=== PATIENT | male | born 1960 | race Caucasian/White ===

== ENCOUNTER → 2016-05-06 | Outpatient (CLI) | payer BC | END | disposition home or self-care (01) | LOC: C.CPL 10:27 | PROVIDERS: ATTEND Orthopaedic Surgery Sports Medicine | DX: Z01.810 Encounter for preprocedural cardiovascular examination (principal) ==

== ENCOUNTER → 2016-05-20 | Outpatient (CLI) | payer BC ==
--- NOTE | 2016-05-20 11:57 | DIAGNOSTIC IMAGING REPORT ---
RIGHT FIFTH FINGER ULTRASOUND CLINICAL HISTORY: Right fifth finger mass COMPARISON STUDY: No previous studies for comparison. FINDINGS: There is a 2.3 cm mixed attenuation mass involving the volar aspect of the right fifth finger. This is contiguous with the flexor tendon which appears abnormal. This may represent a posttraumatic hematoma in the setting of a flexor tendon injury. The ultrasound findings are however nonspecific, and a tendon sheath tumor cannot be excluded with certainty. An MRI is recommended in follow-up. IMPRESSION: 1. 2.3 cm mass contiguous with the flexor tendon of the right fifth finger. The flexor tendon appears abnormal and this may represent a posttraumatic hematoma in the setting of a flexor tendon injury. The findings are however nonspecific and an MRI is recommended in follow-up Electronically signed by: Dewey Slater M.D. 05/20/2016 11:56 AM Dictated Date/Time: 05/20/2016 11:51 AM
== END | disposition home or self-care (01) ==
LOC: C.ULTR 10:28
PROVIDERS: ATTEND Orthopaedic Surgery
DX: R22.31 Localized swelling, mass and lump, right upper limb (principal)

== ENCOUNTER → 2016-06-06 | Outpatient (CLI) | payer BC | END | disposition home or self-care (01) | LOC: C.PATHSPEC 17:17 | PROVIDERS: ATTEND Orthopaedic Surgery | DX: M1A.9XX1 Chronic gout, unspecified, with tophus (tophi) (principal) ==

== ENCOUNTER 2022-07-28 06:40 | Observation (INO) ==
--- NOTE | 2022-07-14 11:38 | PAT Medication Instructions ---
Medication Instructions Date of Service July 14, 2022 Home Medications indomethacin 25 mg capsule 25 mg PO QID PRN Pain lisinopril 20 mg tablet 20 mg PO QAM ASK your surgeon for instructions indomethacin 25 mg capsule 25 mg PO QID PRN Pain DO NOT take the morning of surgery lisinopril 20 mg tablet 20 mg PO QAM Other Notes If you have any questions please call us at [phone] or [phone] or [phone] or [phone]
--- NOTE | 2022-07-17 15:02 | Anesthesiology Consultation ---
Date of Service July 17, 2022 Assessment & Plan (1) Encounter for pre-operative examination: - awaiting final PCP pre-op determination, PAT testing to be faxed to PCP. - medical clearance 06/23/22 [facility]: "...right shoulder replacement...chronic conditions are stable...OK for surgery as long as the pre-op testing is within acceptable limits..." - Case discussed in detail with Dr. Lynch including abnormal labs, he advised nothing additional needed other than plan to fax labs to PCP and await PCP response. If PCP repeats BMP will add to chart and if not, will leave to anesthesiologist discretion DOS per discussion. - Outpatient joint assessment: Pending PCP determination. Chart Review Chart Review: Pending: Refer to Additional Notes / Consult section and Patient seen in Pre Admission Testing Teaching & Discussion Pre-Anesthesia Teaching/Discussion Notes: Instructed NPO after midnight before surgery, except medications with 15 cc of water. Medication instructions provided according to the PAT guidelines. History Surgery Operation Date: 07/28/22 12:15 Proposed Procedures p Right Total Shoulder Arthroplasty, Biceps Tenodesis, - Garrett Moreira MD s Biceps Tenodesis, Possible Rotator Cuff Repair - Garrett Moreira MD Height/Weight Height: 5 ft 11 in Weight: 86.4 kg Allergies Allergy/AdvReac Type Severity Reaction Status Date / Time crestor AdvReac Intermediate myalgia Uncoded 07/15/22 10:35 and nausea percocet AdvReac Intermediate nausea and Uncoded 07/15/22 10:35 headache Medications Home Medications Medication Instructions Recorded Confirmed Last Taken indomethacin 25 mg capsule 25 mg PO QID PRN Pain 07/11/22 07/11/22 Unknown lisinopril 20 mg tablet 20 mg PO QAM 07/11/22 07/11/22 Unknown Past Medical History Medical History (Updated 07/17/22 @ 15:12 by Cori Thapa PA-C) Asthma only prn inhaler; last rescue inhaler use > 3 months ago Gout HTN (hypertension) controlled, stable per pt Prediabetes Rosacea Patient denies h/o stroke, seizures, heart attack, heart failure, blood clots or blood transfusions. Exercise / Class Metabolic Activity II 4-5 Yardwork/Stairs/Walk up hill (denies chest discomfort or shortness of breath with 1 FOS) Past Family History Family History Other No family history of adverse response to anesthesia Past Surgical History Surgical History History of open reduction and internal fixation (ORIF) procedure left clavicle fx Hx of arthroscopic knee surgery left Hx of colonoscopy Past Anesthesia History No Hx of Anesthesia Complications and No Family Hx of Anesthesia Complications History of PONV No Hx of PONV and No Hx of Motion Sickness Social History Smoking Status: Former smoker tobacco type: cigarettes Smoking cigarettes per day: quit over 17 yrs ago Do You Dip or Chew Tobacco: No Hx Alcohol Use: Yes Alcohol type: beer alcohol intake frequency: a few times a month Hx Substance Use: No substance use type: does not use Review of Systems Occasional snoring, denies witnessed apneas. Patient denies chest pain, shortness of breath, dyspnea on exertion, reflux, fever, chills, cough, wheezing, or palpitations. Physical Exam Vital Signs Vitals BP 166/74 P 64 TEMP 97.9 SP02 99% on RA RESP 18 Physical Full cervical extension range of motion without pain TMD 3.5 finger breadths Mallampati Score 3 Dentition: front upper permanent bridge; denies chipped or loose teeth, caps/crowns, implants Lungs: normal respiratory effort. Clear throughout to auscultation, no adventitious breath sounds Cardiac: regular rate and rhythm, no murmurs noted Carotid arteries: negative bruit bilat Lab Results Anesthesia Preop Results Results Anesthesia Widget: WBC 5.88 K/ul (4.8-10.8) 07/17/22 Hgb 11.4 g/dl (14.0-18.0) L 07/17/22 Hct 34.5 % (42.0-52.0) L 07/17/22 Plt 231 K/uL (130-400) 07/17/22 Na 141 mmol/L (136-145) 07/17/22 K 5.4 mmol/L (3.5-5.1) H 07/17/22 Cl 111 mmol/L (98-107) H 07/17/22 CO2 23 mmol/L (21-32) 07/17/22 BUN 38 mg/dl (6-23) H 07/17/22 Creat 1.23 mg/dl (0.6-1.4) 07/17/22 Glucose Level 98 mg/dl (70-99(Fasting)) 07/17/22 PT 10.3 Seconds (9.0-12.0) 07/17/22 PTT 26.0 Seconds (21.0-31.0) 07/17/22 INR 1.0 (0.9-1.1) 07/17/22 Urine Color Yellow 07/17/22 Urine Appearance Clear (Clear) 07/17/22 Urine pH 5.0 (4.5-7.5) 07/17/22 Urine Specific [place] 1.019 (1.000-1.030) 07/17/22 Urine Protein 2+ (Negative) H 07/17/22 Urine Glucose (UA) Negative (Negative) 07/17/22 Urine Ketones Negative (Negative) 07/17/22 Urine Blood Negative (Negative) 07/17/22 Urine Nitrite Negative (Negative) 07/17/22 Urine Bilirubin Negative (Negative) 07/17/22 Urine Urobilinogen Negative (Negative) 07/17/22 Urine Leukocyte Esterase Negative (Negative) 07/17/22 Urine WBC (Auto) 1-5 /hpf (0-5) 07/17/22 Urine RBC (Auto) 0-4 /hpf (0-4) 07/17/22 Urine Hyaline Casts (Auto) 1-5 /lpf (0-5) 07/17/22 Urine Epithelial Cells (Auto) 0-5 /lpf (0-5) 07/17/22 Urine Bacteria (Auto) Negative (Negative) 07/17/22 Blood Type A Positive 07/17/22 Antibody Screen NEGATIVE 07/17/22 Testing Electrocardiogram Date: 07/17/22 NSR, rate 62 bpm Chest X-Ray Date: 07/17/22 Left clavicular fixation hardware is seen. The cardiomediastinal silhouette is normal. The lungs are clear. No evidence of pleural effusion or pneumothorax. Degenerative changes are seen in the spine. IMPRESSION: No acute chest disease. COVID-19 Risk Screen Screening Information COVID-19 Screen Date: 07/17/22 Exposure 21 Days Family/Household +COVID Last 21 Days: No Exposure 10 Days Any COVID Exposure Last 10 Days: No Symptoms Last 10 Days Experienced COVID Sx Last 10 Days: No + COVID 0-90 Days COVID + in Last 0-90 Days: No
--- NOTE | 2022-07-27 18:35 | History & Physical Report ---
Date of Service July 27, 2022 Assessment & Plan (1) Primary osteoarthritis, right shoulder: Plan: Treatment options discussed with patient. He has failed conservative measures and would like to proceed with surgical intervention. Risks, benefits and alternatives to surgery including but not limited to infection, DVT, pain, stiffness, need for revision surgery, damage to blood vessels, damage to nerves, PE, , were discussed with the patient and they wish to proceed. Plan on right total shoulder arthroplasty, biceps tenodesis, possible rotator cuff repair scheduled for 07/28/22 at [facility] with Dr. Eugene. All questions answered. He will attend outpatient PT upon discharge. Patient will follow up post op. History of Present Illness Chief Complaint: Right shoulder pain Primary Care Provider: NO PCP 62yo male with PMHx significant for HTN, Gout, asthma who presents with longstanding right shoulder pain. He has failed conservaitve measures including injections. Pain interfering with his daily acttivities. He would like to proceed with surgical intervention. Patient denies headaches, sweats, fevers, chills, double vision, blurred vision, cough, sore throat, dysphagia, chest pain, sob, wheezing, n/v/d/c, numbness, tingling, fatigue, urinary symptoms, mood disorders. ROS positive for right shoulder pain and stiffness. Allergies Allergy/AdvReac Type Severity Reaction Status Date / Time acetaminophen [From Percocet] AdvReac NAUSEA AND Verified 07/25/22 13:48 HEADACHE oxycodone [From Percocet] AdvReac NAUSEA AND Verified 07/25/22 13:48 HEADACHE rosuvastatin [From Crestor] AdvReac MYALGIA Verified 07/25/22 13:48 AND NAUSEA Home Medications Medication Instructions Recorded Confirmed Type indomethacin 25 mg capsule 25 mg PO QID PRN Pain 07/11/22 07/11/22 History lisinopril 20 mg tablet 20 mg PO QAM 07/11/22 07/11/22 History Past Med/Surg History Medical History (Updated 07/27/22 @ 18:34 by Oscar León PA-C) Asthma only prn inhaler; last rescue inhaler use > 3 months ago Gout HTN (hypertension) controlled, stable per pt Prediabetes Rosacea Surgical History History of open reduction and internal fixation (ORIF) procedure left clavicle fx Hx of arthroscopic knee surgery left Hx of colonoscopy Family History Other No family history of adverse response to anesthesia Social History Smoking Status: Former smoker Cigarettes Per Day: quit over 17 yrs ago; Second Hand Exposure: No; Do You Dip or Chew Tobacco: No; Tobacco Cessation Education Requested by Patient: No Hx Alcohol Use: Yes Alcohol type: beer Hx Substance Use: No Preferred Language: Samoan Communication Ability: Effective Congressional Representative Required: No Beliefs That Will Affect Care: None Current Living Situation: Spouse Other Information That Helps Us Care for You: No Feels Safe at Home: Yes Safety Concerns: Feels Safe At This Time Assistive Devices: None Review of Systems All systems reviewed & are unremarkable except as noted in HPI & below Physical Exam Constitutional: well developed and well nourished; no acute distress Eyes: PERRL, conjunctivae normal, anicteric sclerae ENMT: external ear and nose normal, oropharynx normal Neck: trachea midline, no thyromegaly Respiratory: normal respiratory effort, lungs clear to auscultation Cardiovascular: RRR, no murmur, no edema Musculoskeletal: Right shoulder: Tenderness anterior glenoid. Crepitation with ROM. Pain with resistive strength testing. 5-/5 abduction, 5-/5 ER and IR. Painful ROM. FF to 60 degreees and abduction to 60 degrees actively. Positive impingement signs. Skin: no rashes, warm and dry Neurologic: patellar DTR's 2+ bilat, sensation intact Psychiatric: A+Ox3, euthymic affect Results & Data Diagnostic Findings Right shoulder radiographs demonstrate endstage osteoarthritis right shoulder, bone on bone glenohumeral joint. MRI demonstrates some parital tearing of his rotator cuff, not felt to be high grade with rotator cuff tendinopathy.
[~2022-07-28 06:40] MED LIST: ACETAMINOPHEN 500 MG TAB PO SCH; BUPIVACAINE 0.5 % 5 MG/1 ML PF 10ML VIAL ONE; CeleBREX 200 MG CAP PO SCH; FAMOTIDINE 20 MG TAB PO SCH; GABAPENTIN 600 MG DOSE PO SCH; METOCLOPRAMIDE HCL 10 MG TABLET PO SCH; TRANEXAMIC ACID 1,000 MG **IV Intra-op IV SCH; TRANEXAMIC ACID 1,000 MG **IV Pre-op IV SCH; ceFAZolin 2000MG 2,000 MG/15 ML SYR IV SCH; dexAMETHasone 4 MG TAB PO SCH
[2022-07-28] MEDS ORDERED: MIDAZOLAM HCL 1 MG/ML 2ML VIAL ONE (06:52)
[2022-07-28] MEDS ORDERED: KETAMINE 50 MG/5 ML SYRINGE ONE (06:53)
[2022-07-28] MEDS ORDERED: fentaNYL citrate PF 100 MCG/2 ML VIAL ONE (06:53)
--- NOTE | 2022-07-28 07:30 | History & Physical Bridge Note ---
Date of Service July 28, 2022 History & Physical Bridge Note I have examined the patient, reviewed the History & Physical and in the interval since the performance of the History & Physical I have noted the following changes of clinical significance: no changes noted
[2022-07-28] MEDS: LACTATED RINGER'S 1,000 ML IV SCH ×2 (08:00→11:28)
[2022-07-28 08:59] LABS: iSTAT Creatinine 1.9 mg/dl (0.6-1.3); iSTAT Hemoglobin 12.2 g/dl (14.0-18.0); iSTAT Ionized Calcium 1.32 mmol/l (1.12-1.32); iSTAT Potassium 5.9 mmol/L (3.3-5.0)
--- NOTE | 2022-07-28 09:30 | History & Physical Report ---
Date of Service July 28, 2022 Assessment & Plan (1) Hyperkalemia: Plan: -POC potassium is 5.9 -Full BMP is still pending -EKG with no changes -will give 1 dose lokelma now -repeat BMP later this afternoon -lisinopril discontinued (2) GLORIA (acute kidney injury): Plan: -POC Cr is 1.9, full BMP is pending -Cr from last week is 1.2, patient's baseline Cr is 1.2-1.5 -will check renal/bladder ultrasound to rule out obstruction -lisinopril and indomethacin discontinued (3) Arthritis: Plan: -acetaminophen PRN for pain (4) HTN (hypertension): Plan: -hold lisinopril -BP is normotensive. Monitor for now Plan Nausea -may be NSAIDs induced gastritis. Denies abdominal pain, PUD less likely -start course of pepcid BID -zofran PRN -avoid NSAIDs DVT ppx -Ambulation, SCD Dispo -PCU History of Present Illness Chief Complaint: abnormal pre op labs Primary Care Provider: NO PCP Mr Cory Perez is a 62 year old man with history of diverticulosis, hyperlipidemia, clavicle fracture, gout, hypertension on lisinopril, arthritis on indomethacin presents to [facility] for routine right shoulder replacement and for preop had labwork which revealed a potassium of 5.9. His surgery was cancelled and medicine was consulted for help with management of his hyperkalemia. Of note, he did have preop labwork 07/17/2022 and at that time, his potassium was noted to be 5.3. He was instructed to increase water intake. He remains on lisinopril. His remaining labwork from today shows a Cr 1.9 (1.2 on 07/17) and remaining labwork is pending. Review of systems, patients reports body stiffness and arthritis for which he takes indomethacin. Recently he also intermittently has nausea but no vomiting, no abdominal pain. His oral intake and diet is unchanged. Denies dysuria or difficulty urinating. Denies dark urine. No recent medication changes. Allergies Allergy/AdvReac Type Severity Reaction Status Date / Time acetaminophen [From Percocet] AdvReac NAUSEA AND Verified 07/28/22 07:26 HEADACHE oxycodone [From Percocet] AdvReac NAUSEA AND Verified 07/28/22 07:26 HEADACHE rosuvastatin [From Crestor] AdvReac MYALGIA Verified 07/28/22 07:26 AND NAUSEA Home Medications Medication Instructions Recorded Confirmed Type indomethacin 25 mg capsule 25 mg PO QID PRN Pain 07/11/22 07/28/22 History lisinopril 20 mg tablet 20 mg PO QAM 07/11/22 07/28/22 History Past Med/Surg History Medical History (Updated 07/28/22 @ 10:14 by Yong Cintron MD) Asthma only prn inhaler; last rescue inhaler use > 3 months ago Gout HTN (hypertension) controlled, stable per pt Prediabetes Rosacea Surgical History History of open reduction and internal fixation (ORIF) procedure left clavicle fx Hx of arthroscopic knee surgery left Hx of colonoscopy Family History Other No family history of adverse response to anesthesia Social History Smoking Status: Former smoker Cigarettes Per Day: quit over 17 yrs ago; Second Hand Exposure: No; Do You Dip or Chew Tobacco: No; Tobacco Cessation Education Requested by Patient: No Hx Alcohol Use: Yes Alcohol type: beer Hx Substance Use: No Preferred Language: Mohawk Communication Ability: Effective Guest House Manager Required: No Beliefs That Will Affect Care: None Current Living Situation: Spouse Other Information That Helps Us Care for You: No Feels Safe at Home: Yes Safety Concerns: Feels Safe At This Time Assistive Devices: None Review of Systems Review of Systems: As above in HPI, remaining ROS otherwise negative Physical Exam Physical Exam: Appears stated age, no acute distress, pleasant and comfortable ENMT: normocephalic, atraumatic, mucous membrane moist Respiratory: Breathing comfortably, no wheezing/rhonchi/rales Cardiovascular: regular rate and rhythm, no murmurs/rubs Gastrointestinal (Abdomen): soft, non tender, non distended Musculoskeletal: No edema, no cyanosis or clubbing Skin: no rash, no redness, no bruising Neurologic: awake, alert, spontaneously moving extremities Results & Data Results & Data Vital Signs (Past 12 Hours) Vital Signs Temp Pulse Resp BP Pulse Ox O2 Del Method 07/28/22 07:29 36.6 C 68 18 131/80 98 Room Air
[2022-07-28 09:45] LABS: Calcium 9.6 mg/dl (8.6-10.3); Potassium 5.3 mmol/L (3.5-5.1)
[2022-07-28 09:51] LABS: BUN Creatinine Ratio 27.5 (10-20); Creatinine Clr Calc Pharmacy 49.5 ml/min; Est GFR (African American) 50.4 ml/min; Est GFR (Non-African American) 43.5 ml/min
[2022-07-28] MEDS ORDERED: ondansetron HCL 6 MG in DEXTROSE 5% 50 ML IV PRN (11:01)
[2022-07-28] MEDS ORDERED: POLYETHYLENE (MIRALAX) 17 GM PACK PO PRN (11:01)
[2022-07-28] MEDS ORDERED: ACETAMINOPHEN 325 MG TAB PO PRN (11:01)
[2022-07-28] MEDS: SODIUM CHLORIDE 0.9% 1000ML 1,000 ML IV SCH ×2 (11:50→21:31)
--- NOTE | 2022-07-28 15:17 | Ultrasound Report ---
RENAL ULTRASOUND HISTORY: Acute kidney injury GLORIA COMPARISON: None. FINDINGS: Right kidney: 14.3 cm. Cysts of the right kidney measure up to 7.0 x 4.6 x 4.2 cm in the interpolar d istribution. Additionally, there is a 1.5 cm round focus of increased echogenicity within the interpo lar distribution measuring 1.5 x 1.3 x 2.0 cm without color flow. No hydronephrosis. Normal corticome dullary differentiation and cortical thickness. Left kidney: 11.6 cm. No hydronephrosis. Normal corticomedullary differentiation and cortical thickne ss. Bladder: Mild urinary bladder wall thickening. The bilateral ureteral jets were identified. IMPRESSION: 1. No renal calculi or hydronephrosis. 2. 2.0 cm round focus of increased echogenicity within the interpolar right kidney may represent norm al parenchyma, however correlation with a CT renal mass protocol recommended to further characterize. 3. Right renal cysts. ACT 112: Negative or not required by law. Electronically signed by: Taj Styles M.D. 07/28/2022 3:16 PM
[2022-07-28 17:07] LABS: BUN Creatinine Ratio 27.8 (10-20); Calcium 9.3 mg/dl (8.6-10.3); Creatinine Clr Calc Pharmacy 48.9 ml/min; Est GFR (African American) 49.7 ml/min; Est GFR (Non-African American) 42.9 ml/min; Potassium 5.9 mmol/L (3.5-5.1)
[2022-07-28] MEDS ORDERED: SODIUM ZIRCONIUM CYCLOSILICATE 10 GM PACKET PO ONE (17:15)
--- NOTE | 2022-07-28 17:45 | Electrocardiogram Report ---
Test Reason : Blood Pressure : / mmHG Vent. Rate : 068 BPM Atrial Rate : 068 BPM P-R Int : 136 ms QRS Dur : 084 ms QT Int : 380 ms P-R-T Axes : 059 050 057 degrees QTc Int : 404 ms Normal sinus rhythm Normal ECG When compared with ECG of 17-JUL-2022 15:27, No significant change was found Confirmed by Harshal Grace ([id number]) on 07/28/2022 5:44:23 PM Referred By: Garrett Moreira Confirmed By:Saulo Grace
--- NOTE | 2022-07-28 17:46 | Electrocardiogram Report ---
Test Reason : Blood Pressure : / mmHG Vent. Rate : 065 BPM Atrial Rate : 065 BPM P-R Int : 142 ms QRS Dur : 082 ms QT Int : 384 ms P-R-T Axes : 068 053 056 degrees QTc Int : 399 ms Normal sinus rhythm Normal ECG When compared with ECG of 28-JUL-2022 07:41, (unconfirmed) No significant change was found Confirmed by Harshal Grace ([id number]) on 07/28/2022 5:45:58 PM Referred By: Garrett Moreira Confirmed By:Saulo Grace
[2022-07-28] MEDS: FAMOTIDINE 20 MG TAB PO SCH (21:12)
[2022-07-28 22:27] LABS: BUN Creatinine Ratio 30.1 (10-20); Calcium 9.1 mg/dl (8.6-10.3); Est GFR (African American) 56.1 ml/min; Est GFR (Non-African American) 48.4 ml/min; Potassium 5.2 mmol/L (3.5-5.1)
[2022-07-29 07:07] LABS: BUN Creatinine Ratio 32.3 (10-20); Calcium 8.8 mg/dl (8.6-10.3); Creatinine Clr Calc Pharmacy 66.6 ml/min; Est GFR (African American) 72.3 ml/min; Est GFR (Non-African American) 62.4 ml/min; Potassium 4.8 mmol/L (3.5-5.1)
[2022-07-29] MEDS: SODIUM CHLORIDE 0.9% 1000ML 1,000 ML IV SCH (08:27)
[2022-07-29] MEDS: FAMOTIDINE 20 MG TAB PO SCH (08:28)
--- NOTE | 2022-07-29 15:29 | Communication Note ---
Date of Service: July 29, 2022 Patient was scheduled yesterday for total shoulder arthroplasty with Dr. Moreira. He was found to be hyperkalemic and the surgery was thusly canceled. He was admitted to the hospitalist service thereafter. Potassium was brought down to 4.8 noted today. I discussed this with Dr. Moreira today. There are no plans for surgery during this admission. Patient can be discharged by the medicine service to home. He will need to call the office to reschedule his surgery. He will also need to follow-up with his primary care physician with repeat blood work prior to his next surgery date to make sure that his potassium continues to remain stable. I have spoken to Dr. Dubon. Plans will be to discharge the patient home today with follow-up with Dr. Moreira in the near future.
--- NOTE | 2022-07-29 15:49 | Discharge Summary ---
Date of Service July 29, 2022 Admission HPI Per Admitting Provider Mr Cory Perez is a 62 year old man with history of diverticulosis, hyperlipidemia, clavicle fracture, gout, hypertension on lisinopril, arthritis on indomethacin presents to [facility] for routine right shoulder replacement and for preop had labwork which revealed a potassium of 5.9. His surgery was cancelled and medicine was consulted for help with management of his hyperkalemia. Of note, he did have preop labwork 07/17/2022 and at that time, his potassium was noted to be 5.3. He was instructed to increase water intake. He remains on lisinopril. His remaining labwork from today shows a Cr 1.9 (1.2 on 07/17) and remaining labwork is pending. Review of systems, patients reports body stiffness and arthritis for which he takes indomethacin. Recently he also intermittently has nausea but no vomiting, no abdominal pain. His oral intake and diet is unchanged. Denies dysuria or difficulty urinating. Denies dark urine. No recent medication changes. Admission Exam Per Admitting Provider Appears stated age, no acute distress, pleasant and comfortable ENMT: normocephalic, atraumatic, mucous membrane moist Respiratory: Breathing comfortably, no wheezing/rhonchi/rales Cardiovascular: regular rate and rhythm, no murmurs/rubs Gastrointestinal (Abdomen): soft, non tender, non distended Musculoskeletal: No edema, no cyanosis or clubbing Skin: no rash, no redness, no bruising Neurologic: awake, alert, spontaneously moving extremities Principal Diagnosis GLORIA Hyperkalemia Discharge Exam Constitutional + well hydrated; no acute distress Eyes PERRL, conjunctivae normal, anicteric sclerae ENMT external ear and nose normal, oropharynx normal Respiratory normal respiratory effort, lungs clear to auscultation Cardiovascular Rate/Rhythm: regular rate and regular rhythm S1 S2 Gastrointestinal (Abdomen) normal bowel sounds, soft, nontender, no hepatosplenomegaly Musculoskeletal No pedal edema Neurologic PERRL, EOMI, accommodation nl, no face palsy, no dysarthria Psychiatric A+Ox3, euthymic affect Discharge Data Allergies Allergy/AdvReac Type Severity Reaction Status Date / Time acetaminophen [From Percocet] AdvReac NAUSEA AND Verified 07/28/22 07:26 HEADACHE oxycodone [From Percocet] AdvReac NAUSEA AND Verified 07/28/22 07:26 HEADACHE rosuvastatin [From Crestor] AdvReac MYALGIA Verified 07/28/22 07:26 AND NAUSEA Consultations 07/25/22 12:45 Consult Hospitalist Routine 07/28/22 08:52 Consult Hospitalist Stat 07/29/22 12:59 Consult Orthopedic Surgery Routine Procedures Performed Operation Date: 07/28/22 09:35 <No data on this case meets the specified criteria> Ordered Studies 07/28/22 10:15 US Renal Bladder [US renal/blad retro comp] Routine Hospital Course (1) Hyperkalemia: (2) GLORIA (acute kidney injury): Patient had scheduled right shoulder arthroplasty But POC lab and BMP noted hyperkalemia up to 5.9 and Cr of 1.69 Patient got 1 dose of lokelma and IVF Renal USS did not show any renal calculi or hydronephrosis. Also noted 2cm round focus within right kidney which may be normal parenchyma GLORIA resolved. Cr is 1.2 today, K is 4.8 Patient advised to follow up with PCP within the week for follow up Lisinopril stopped for now. Amlodipine 5mg daily prescribed in place of lisinopril Patient advised to stop using Indomethacin/NSAIDs but to use tylenol for pain PCP to arrange for CT renal protocol for better assessment of USS findings (3) Arthritis: Acetaminophen PRN for pain Stop indomethacin Discussed with surgical team. They will like patient to follow up with PCP before rescheduling surg. PCP to repeat labs (4) HTN (hypertension): Lisinopril stopped for now. Amlodipine 5mg daily prescribed in place of lisinopril Plan Sent a tigertext to PCP (Artemio Herr) about findings, plans and recommendations Total Time Total Time Spent Total Time Spent (In Minutes): 45 Total Time Includes: Examination of the Patient, Discharge Planning, Medication Reconciliation and Communication With Other Providers Discharge Plan Discharge Items Patient Disposition: Home - Self-Care Reason For Visit: Right Shoulder Osteoarthritis, Partial Rotator cuf Discharge Diagnosis: Acute kidney injury Hyperkalemia Condition on Discharge: Good Activity: Resume your previous activity Weightbearing: Full weightbearing Non-emergency contact: Primary Care Provider and Surgeon Call non-emergency contact if: you have any medication questions and your symptoms worsen Follow-up/Referrals: PCP,NO [Primary Care Provider] - Diet: Heart Healthy and Low Potassium (2gm) Addtl Attending Provider Instructions: Mr Chris Mojica had come to the hospital for planned shoulder surgery. However, this was canceled due to abnormal labs (elevated potassium level) You were managed for these. Please stop taking ibuprofen. Use tylenol as needed for pain Stop taking lisinopril for now. You are being discharged on amlodipine 5mg daily for blood pressure management in place of lisinopril Please ensure follow up with your Primary Doctor who will evaluate you and check labs again before rescheduling the surgery with the surgeon. It was a pleasure taking care of you. Pending Studies at Discharge: No Stand-Alone Forms: My [facility], Smoking Cessation Medications and DC Order Prescriptions: New acetaminophen 325 mg Tablet 650 mg PO QID PRN (Reason: pain) Qty: 30 0RF amlodipine 5 mg tablet 5 mg PO DAILY Qty: 30 0RF Discontinued lisinopril 20 mg Tablet 20 mg PO QAM indomethacin [Indocin] 25 mg Capsule 25 mg PO QID PRN (Reason: Pain) Rx Instructions: administer with food or milk Discharge Orders: Discharge Order (Routine); Ordered 07/29/22 Ordered By: Helena Dubon Admission Data Admit Date/Time: 07/28/22 10:04 Attending Provider: Helena Dubon I. Admit Provider: Yong Cintron Primary Care Provider: PCP,NO Other Providers: Romero Hernandez ; Jeffrey Thomason ; Yong Cintron ; Garrett Moreira Other Interventions: Discharge Summary Assessment (RN) Last Done: 07/29/22 15:59
== END 2022-07-29 17:13 | disposition home or self-care (01) ==
LOC: ASU 06:40 → 2S 10:04 → INTOOBSV 10:04 → SUATTDRO 10:04
DX: M19.011 Primary osteoarthritis, right shoulder; N17.9 Acute kidney failure, unspecified; Z79.899 Other long term (current) drug therapy; I10 Essential (primary) hypertension; Z87.891 Personal history of nicotine dependence; E87.5 Hyperkalemia; Z88.5 Allergy status to narcotic agent; Z88.6 Allergy status to analgesic agent; Z88.8 Allergy status to other drugs, medicaments and biological substances

== ENCOUNTER 2022-09-03 11:48 | Observation (INO) ==
--- NOTE | 2022-08-25 10:04 | Anesthesiology Consultation ---
Date of Service August 25, 2022 Assessment & Plan (1) Encounter for pre-operative examination: Plan - to anesthesiologist discretion if additional testing is needed DOS. - PCP pre-op evaluation 08/06/22 [facility]: "...R shoulder replacement...Pt has revised cardiac index score of No Risk Factors- 0.4% (95% CI: 0.1-0.8) for the surgery scheduled. Patient is low risk for the listed procedure...potassium now within normal limits..." - discharge summary 07/29/22 [facility]: "...hyperkalemia...GLORIA (acute kidney injury)...scheduled right shoulder arthroplasty...Renal USS did not show any renal calculi or hydronephrosis. Also noted 2cm round focus within right kidney which may be normal parenchyma. GLORIA resolved. Cr is 1.2 today, K is 4.8..." - Outpatient joint assessment: Patient is currently scheduled for inpatient pathway. If re-evaluated pending system levels during current pandemic/surgeon requests outpatient pathway, patient is acceptable candidate for outpatient joint program from anesthesia standpoint pending surgeon's office assessment of pt motivation/support/completion of same day joint program preop requirements. - COVID screening: Per sled maker on 08/25/2022: Travel screen negative, no known COVID-19 positive contacts or current COVID-19 related symptoms in past 2 weeks. To surgeon's discretion if preop COVID testing is needed. Chart Review Chart Review: Acceptable Risk for Surgery and Patient NOT seen in Pre Admission Testing History Surgery Operation Date: 09/03/22 14:15 Proposed Procedures p Right Total Shoulder Arthroplasty Ascend Flex Back Up Tenodesis Possible Rotator Cuff Repair - Garrett Moreira MD Height/Weight Height: 5 ft 11 in Weight: 88.451 kg Allergies Allergy/AdvReac Type Severity Reaction Status Date / Time acetaminophen [From Percocet] AdvReac NAUSEA AND Verified 08/25/22 08:29 HEADACHE oxycodone [From Percocet] AdvReac NAUSEA AND Verified 08/25/22 08:29 HEADACHE rosuvastatin [From Crestor] AdvReac MYALGIA Verified 08/25/22 08:29 AND NAUSEA Medications Home Medications Medication Instructions Recorded Confirmed Last Taken acetaminophen 325 mg tablet 650 mg PO QID PRN pain #30 tabs 07/29/22 08/25/22 Unknown amlodipine 5 mg tablet 5 mg PO DAILY #30 tabs 07/29/22 08/25/22 Unknown Past Medical History Medical History (Updated 08/25/22 @ 09:57 by Cori Thapa PA-C) Asthma has not used inhaler > 7 mos Gout hx HTN (hypertension) controlled, stable per pt Hyperlipidemia controlled w/ diet Prediabetes no meds- diet controlled Rosacea has not had issue in years Past Family History Family History Other No family history of adverse response to anesthesia Past Surgical History Surgical History History of open reduction and internal fixation (ORIF) procedure left clavicle fx Hx of arthroscopic knee surgery left Hx of colonoscopy Hx of tooth extraction Social History Smoking Status: Former smoker tobacco type: cigarettes Smoking cigarettes per day: quit ~16 yrs ago Do You Dip or Chew Tobacco: No Hx Alcohol Use: Yes Alcohol type: beer alcohol intake frequency: holidays/special occasions only Hx Substance Use: No substance use type: does not use Testing Laboratory Results 08/06/2022 H/H: SODIUM: 140 POTASSIUM: 4.4 CHLORIDE: 104 CO2: 26 BUN: 43 CREATININE: 1.2 GLUCOSE: 99 Electrocardiogram Date: 07/28/22 NSR, rate 65 bpm Chest X-Ray Date: 07/17/22 No acute chest disease
--- NOTE | 2022-08-30 08:22 | History & Physical Report ---
Date of Service August 30, 2022 Assessment & Plan (1) Primary osteoarthritis, right shoulder: Plan: Treatment options discussed with patient. He has failed conservative measures and would like to proceed with surgical intervention. Risks, benefits and alternatives to surgery including but not limited to infection, DVT, pain, stiffness, need for revision surgery, damage to blood vessels, damage to nerves, PE, , were discussed with the patient and they wish to proceed. Plan on right total shoulder arthroplasty, biceps tenodesis, possible rotator cuff repair scheduled for 08/30/22 at [facility] with Dr. Eugene. All questions answered. He will attend outpatient PT upon discharge. Patient will follow up post op. History of Present Illness Chief Complaint: Right shoulder pain Primary Care Provider: NO PCP 62yo male with PMHx significant for HTN, Gout, asthma, hyperkalemia now normal on recent labs who presents with longstanding right shoulder pain. He has failed conservative measures including injections. Pain interfering with his daily activities. He would like to proceed with surgical intervention. Patient denies headaches, sweats, fevers, chills, double vision, blurred vision, cough, sore throat, dysphagia, chest pain, sob, wheezing, n/v/d/c, numbness, tingling, fatigue, urinary symptoms, mood disorders. ROS positive for right shoulder pain and stiffness. Allergies Allergy/AdvReac Type Severity Reaction Status Date / Time acetaminophen [From Percocet] AdvReac NAUSEA AND Verified 08/25/22 08:29 HEADACHE oxycodone [From Percocet] AdvReac NAUSEA AND Verified 08/25/22 08:29 HEADACHE rosuvastatin [From Crestor] AdvReac MYALGIA Verified 08/25/22 08:29 AND NAUSEA Home Medications Medication Instructions Recorded Confirmed Type acetaminophen 325 mg tablet 650 mg PO QID PRN pain #30 tabs 07/29/22 08/25/22 Rx amlodipine 5 mg tablet 5 mg PO DAILY #30 tabs 07/29/22 08/25/22 Rx Past Med/Surg History Medical History (Updated 08/25/22 @ 09:57 by Cori Thapa PA-C) Asthma has not used inhaler > 7 mos Gout hx HTN (hypertension) controlled, stable per pt Hyperlipidemia controlled w/ diet Prediabetes no meds- diet controlled Rosacea has not had issue in years Surgical History History of open reduction and internal fixation (ORIF) procedure left clavicle fx Hx of arthroscopic knee surgery left Hx of colonoscopy Hx of tooth extraction Family History Other No family history of adverse response to anesthesia Social History Smoking Status: Former smoker Cigarettes Per Day: quit ~16 yrs ago; Second Hand Exposure: No; Do You Dip or Chew Tobacco: No; Tobacco Cessation Education Requested by Patient: No Hx Alcohol Use: Yes Alcohol type: beer Hx Substance Use: No Preferred Language: Kyrgyz Communication Ability: Effective Button Reclaimer Required: No Beliefs That Will Affect Care: None Current Living Situation: Spouse Other Information That Helps Us Care for You: No Feels Safe at Home: Yes Safety Concerns: Feels Safe At This Time Assistive Devices: None Review of Systems All systems reviewed & are unremarkable except as noted in Subjective Physical Exam Constitutional: well developed and well nourished; no acute distress Eyes: PERRL, conjunctivae normal, anicteric sclerae ENMT: external ear and nose normal, oropharynx normal Neck: trachea midline, no thyromegaly Respiratory: normal respiratory effort, lungs clear to auscultation Cardiovascular: RRR, no murmur, no edema Musculoskeletal: Right shoulder: Tenderness anterior glenoid. Crepitation with ROM. Pain with resistive strength testing. 5-/5 abduction, 5-/5 ER and IR. Painful ROM. FF to 60 degrees and abduction to 60 degrees actively. Positive impingement signs. Skin: no rashes, warm and dry Neurologic: patellar DTR's 2+ bilat, sensation intact Psychiatric: A+Ox3, euthymic affect Results & Data Diagnostic Findings Right shoulder radiographs demonstrate endstage osteoarthritis right shoulder, bone on bone glenohumeral joint. MRI demonstrates some partial tearing of his rotator cuff, not felt to be high grade with rotator cuff tendinopathy.
[~2022-09-03 11:48] MED LIST changes: +LR 15ML/HR IV SCH
[2022-09-03] MEDS ORDERED: fentaNYL citrate PF 100 MCG/2 ML VIAL ONE (12:21)
[2022-09-03] MEDS ORDERED: LIDOCAINE 2% 2 ML VIAL/AMP(20MG/ML) INFIL ONE (12:21)
[2022-09-03] MEDS ORDERED: DEXAMETHASONE SOD INJ 4 MG/ML VIAL ONE (12:21)
[2022-09-03] MEDS ORDERED: PROPOFOL IV EMULSION 10 MG/ML 20 ML VIAL IV ONE (12:21)
[2022-09-03] MEDS ORDERED: ROCURONIUM BROMIDE 10 MG/ML 5 ML VIAL IV ONE (12:21)
[2022-09-03] MEDS ORDERED: ONDANSETRON INJ 2 MG/ML 2 ML VIAL ONE (12:21)
[2022-09-03] MEDS ORDERED: MIDAZOLAM HCL 1 MG/ML 2ML VIAL ONE (12:21)
[2022-09-03] MEDS ORDERED: ALBUTEROL 0.083% NEBU SOLN 3 ML VIAL NEB STA (12:51)
[2022-09-03] MEDS ORDERED: EpINEphrine HCL INJ 1 MG/ML 1ML SYRINGE ONE (13:09)
[2022-09-03] MEDS ORDERED: ceFAZolin 330 MG/ML 1 GM VIAL ONE (13:09)
[2022-09-03] MEDS ORDERED: ePHEDrine sulfate 50 MG/ML AMP IV PRN (13:31)
[2022-09-03] MEDS ORDERED: NALOXONE HCL 0.4 MG/1 ML VIAL/CARP IV PRN ×2 (13:31→17:43)
[2022-09-03] MEDS ORDERED: ONDANSETRON INJ 2 MG/ML 2 ML VIAL IV PRN ×2 (13:31→17:43)
[2022-09-03] MEDS ORDERED: ATROPINE SULFATE 0.1 MG/ML 10ML SYR IV PRN (13:31)
[2022-09-03] MEDS ORDERED: FLUMAZENIL 0.1 MG/1 ML 10 ML VIAL IV PRN (13:31)
[2022-09-03] MEDS ORDERED: PROMETHAZINE HCL 12.5 MG in SODIUM CHLORIDE 0.9% 50 ML IV PRN (13:31)
[2022-09-03] MEDS ORDERED: LABETALOL HCL IV 5 MG/ML 20ML IV PRN (13:31)
[2022-09-03] MEDS ORDERED: fentaNYL citrate PF 100 MCG/2 ML VIAL IV PRN (13:31)
--- NOTE | 2022-09-03 13:32 | History & Physical Bridge Note ---
Date of Service September 03, 2022 History & Physical Bridge Note I have examined the patient, reviewed the History & Physical and in the interval since the performance of the History & Physical I have noted the following changes of clinical significance: no changes noted
--- NOTE | 2022-09-03 13:33 | Communication Note ---
Date of Service: September 03, 2022 Potassium-4.5; Lungs-clear B/L
[2022-09-03 13:46] LABS: iSTAT Creatinine 1.1 mg/dl (0.6-1.3); iSTAT Hemoglobin 10.9 g/dl (14.0-18.0); iSTAT Ionized Calcium 1.24 mmol/l (1.12-1.32); iSTAT Potassium 4.5 mmol/L (3.3-5.0)
--- NOTE | 2022-09-03 16:48 | Post Operative Brief Note ---
Immediate Post Op Note v1 Date of Surgery September 03, 2022 Pre & Post Diagnosis Operation Date: 09/03/22 14:00 Pre-Op Diagnosis: Primary osteoarthritis, biceps tenosynovitis, loose bodies glenohumeral joint right shoulder, possible partial tear rotator cuff Post-Op Diagnosis: Primary osteoarthritis, biceps tenosynovitis with tendinopathy, multiple loose bodies glenohumeral joint right shoulder, intact rotator cuff I identified the patient and participated in the time-out.: Yes Procedure Operation Date: 09/03/22 14:00 Actual Procedures p Right Total Shoulder Stemless Arthroplasty, biceps Tenodesis(Right), removal of multiple loose bodies largest 3 x 1.5 cm- Garrett Moreira MD Surgeon Garrett Moreira MD Kelp Cutter Oscar RENDON Estimated Blood Loss 30 Findings Consistent with Post-Op Diagnosis Specimens Humeral head Drains Hemovac Drain Anesthesia Type General Regional Complications none Disposition Disposition: Recovery Room Overlapping Procedure I was immediately available: during the entire case.
--- NOTE | 2022-09-03 16:59 | Operative Report ---
Post Operative Report Pre & Post Diagnosis Operation Date: 09/03/22 14:00 Pre-Op Diagnosis: Primary osteoarthritis glenohumeral joint end-stage, possible small rotator cuff tear supraspinatus, biceps tenosynovitis, loose bodies glenohumeral joint, right shoulder Post-Op Diagnosis: Primary osteoarthritis glenohumeral joint end-stage, intact rotator cuff, biceps tendinopathy and tenosynovitis, multiple loose bodies glenohumeral joint, right shoulder I identified the patient and participated in the time-out.: Yes Procedure Operation Date: 09/03/22 14:00 Actual Procedures p Right Total Shoulder Stemless Arthroplasty, biceps Tenodesis(Right), removal multiple loose bodies largest being 3 cm x 1.5 cm- Garrett Moreira MD Surgeon Garrett Moreira MD Arabic Professor Oscar RENDON Estimated Blood Loss 30 Findings Consistent with Post-Op Diagnosis Specimens Humeral head cut Drains 2 Hemovac Anesthesia Type General Regional Complications none Disposition Disposition: Recovery Room Indications 62-year-old male with chronic right shoulder pain. Radiographs demonstrate severe glenohumeral osteoarthritis [id number]. MRI demonstrates inflammation in the supraspinatus possible bursal sided partial tear versus tendinopathy. He has tenosynovitis biceps with biceps tendinopathy and multiple loose bodies. Description of Procedure Patient was taken to the operating room anesthetized under regional block and general anesthetic. Patient was placed in a 40 degree beachchair position with a foam headrest protective eyewear all extremities padded teds and SCDs were placed. A towel roll was placed on the medial border of the scapula of the right upper extremity. The arm was examined and range of motion demonstrated 100 degrees forward flexion and 70 degrees AB duction and 10 degrees of external rotation. He was a relatively thin individual.. An anterior deltopectoral approach was performed. Longitudinal incision was made in deltopectoral interval. Skin incised sharply and subcutaneous flaps elevated. The deltopectoral interval was identified. The cephalic vein demonstrated very large intact cephalic vein. The cephalic vein was retracted laterally with the deltoid. The upper centimeter of the pectoralis was released for inferior exposure. Biceps tendon demonstrated chronic tenosynovitis and proximal wid ening and tendinopathy. The biceps was tenodesed to the pectoralis tendon using #2 FiberWire [id number] sutures. Proximal biceps was resected. Rotator cuff findings demonstrated intact supraspinatus tendon area of question on MRI with intact complete rotator cuff. There was synovitis on the undersurface of the rotator cuff.. The circumflex vessels were tied off with silk ties and divided laterally. The subscapularis muscle fibers were split at the level of circumflex vessels and released off the inferior capsule with a Kitner elevator and then a blunt Hohmann retractor was placed protect the axillary nerve. The rotator interval was released down to the level of the glenoid. The subscapularis tendon was taken down with a transtendinous incision leaving a cuff of tissue for repair on the lesser tuberosity. The humeral head findings demonstrated large circumferential osteophytes with eburnated bone and flattening of the humeral head due to bone wear.. The inferior osteophytes were resected using an artist chisel and rongeur. The inferior capsule was released off the bone subperiosteally using a Rodriguez elevator. A #1 Vicryl traction suture was placed into the free edge of the subscapularis tendon. A Fukuda retractor was placed into the joint. Capsule was released with Verde scissors down to the glenoid and off of the anterior glenoid to the rotator interval which was released to meet the capsular release creating a 360 degree release of subscapularis tendon. There were multiple intra-articular loose bodies including large loose bodies in the posterior joint and also loose bodies in the subcoracoid region. Largest of the loose bodies posteriorly was 3 cm x 1.5 cm in the subcoracoid loose body was about 12 mm in diameter. All of the loose bodies were resected and small developing loose bodies on the synovium were resected using multiple instruments. An anterior Bankart retractor was placed. The glenoid and labral findings demonstrated calcifications throughout the labrum multiple areas and the glenoid was completely eburnated bone with a type a wear pattern essentially. It possibly could have been a chronic large B2 glenoid with a small retained rim anteriorly but the angle with regard to retroversion was appropriate for placement of the implant in the existing position. The calcified labrum was resected circumferentially. An anterior-inferior and posterior inferior capsule release was performed electrocautery on bone and a Rodriguez elevator. The axillary nerve was protected inferiorly with the blunt Hohmann. Attention was taken back to the humeral head. Humeral head was exposed with extension and external rotation. The oscillating saw was used to make an anatomic neck cut removing the articular surface. All the circumferential remaining osteophytes were trimmed with a rongeur. The humerus was sized for a 3 nucleus and a 56 x 21 simplicity humeral head. The bone was assessed with a thumb press test and there was solid cancel lous bone. The guide for the nucleus was placed centrally and then the guidepin was placed. The surface reamer was used followed by the central drill for the nucleus. The trial nucleus was inserted and the cut protector was placed. The humerus was retracted posterior to the glenoid . A Tornier retractor ,Hohmann retractors as well as an anterior Bankart retractor were placed. The glenoid wa s fully exposed. The Tornier Cortiloc glenoid was used. The extra-large 60 size was chosen. The central drill hole was made followed by the reamer which was slightly directed anteriorly to take down the small anterior ridge and slightly redirect the version of the glenoid to more anterior. This was followed by widening the central hole for the central post. The guide for the peripheral drill holes was placed and the drill holes were made. The trial reduction performed with stable fixation. The trial removed and the glenoid copiously irrigated with pulsed saline solution. The drill holes were packed with epinephrine-soaked tampons. The Palacos G cement was vacuum mixed. The Tornier XL 60 Cortiloc glenoid component was then cemented in position after drying the glenoid after removal of the tampons. Fixation was excellent. All excess cement was cleared. When the cement cured we moved onto removing the cut protector doing a trial reduction with a 56 x 21 millimeter humeral head trial. Stability was assessed and was stable. Soft tissue tension on the subscapularis tendon was satisfactory. The trial components of the humeral head were removed and the 3 drill holes were made in the harder bone in the biceps groove area and transosseous #5 FiberWire sutures were placed. Then the humeral cut surface was reexposed with retractors and after irrigation the size 3 nucleus was impacted leaving it slightly proud until the simplicity 56 x 21 mm humeral head was placed into the nucleus and then both were impacted into the humerus with a tight press-fit. The humerus was reduced to the glenoid. The stability was verified. The subscapularis tendon was repaired in 2 [id number] #2 FiberWire sutures. Lateral row fixation was performed with interrupted [id number] #2 FiberWire sutures and rotator interval was closed with #2 FiberWire sutures. Range of motion demonstrated 120 degrees forward flexion 90 degrees AB duction and 45 degrees external rotation without tension on repair. The pectoralis was repaired with [id number] #2 FiberWire sutures placing sutures back through the biceps tendon to reinforce the tenodesis. 2 Hemovac drains were placed. The deltopectoral interval was repaired with [id number] #1 Vicryl sutures. The subcutaneous tissue was repaired with 2- 0 Vicryl sutures and the skin was closed with phoenix. Sterile dressings were applied and a sling immobilizer. The patient tolerated the procedure well. Kirby RENDON acted as seismic survey assistant throughout the procedure. He functioned as seismic survey assistant assisting in all aspects of the procedure including patient positioning prepping draping, arm positioning, soft tissue retraction,, instrument management, subcutaneous and skin closure and postop care the patient as well. I attest to the content of the Intraoperative Record and any orders documented therein. Any exceptions are noted below.
--- NOTE | 2022-09-03 17:17 | Anesthesiology Progress Note ---
Date of Service September 03, 2022 Anesthesia Post Procedure Vital Signs Vital Signs: Temp Pulse Pulse Resp BP BP Pulse Ox 09/03/22 17:05 75 27 H 162/86 H 100 09/03/22 16:55 90 16 164/95 H 99 09/03/22 16:45 36.2 C L 80 14 169/89 H 98 09/03/22 12:13 36.5 C 81 18 149/93 H 99 O2 Del Method O2 Flow Rate 09/03/22 17:05 Oxymask 2 09/03/22 16:55 Oxymask 5 09/03/22 16:45 Oxymask 5 09/03/22 12:13 Room Air Pain Intensity Right Shoulder: Pain Intensity: 5 Transfer of Care Handoff Completed per policy Notes Mental Status: alert / awake / arousable Patient Amnestic to Procedure: Yes Nausea / Vomiting: adequately controlled Pain: adequately controlled Airway Patency, RR, SpO2: stable & adequate BP & HR: stable & adequate Hydration State: stable & adequate Anesthetic Complications: no major complications apparent
[2022-09-03] MEDS ORDERED: TAMSULOSIN HCL 0.4 MG CAP PO PRN (17:43)
[2022-09-03] MEDS ORDERED: bisacodyL 10 MG SUPP PR PRN (17:43)
[2022-09-03] MEDS ORDERED: METOCLOPRAMIDE HCL INJ 5 MG/ML 2 ML VIAL IV PRN (17:43)
[2022-09-03] MEDS ORDERED: MAGNESIUM HYDROXIDE SUSP 30 ML UDC PO PRN (17:43)
[2022-09-03] MEDS ORDERED: HYDROmorphone INJ 0.5 MG/0.5 ML SYR IV PRN (17:43)
[2022-09-03] MEDS ORDERED: traMADol HCL 50 MG TABLET PO PRN (17:43)
[2022-09-03] MEDS: SODIUM CHLORIDE 0.9% 1000ML 1,000 ML IV SCH (18:01)
--- NOTE | 2022-09-03 18:42 | XRay Report ---
XR shoulder RT min 2V routine CLINICAL HISTORY: Post shoulder surgery. COMPARISON: None FINDINGS: Alignment of the right shoulder arthroplasty is anatomic. There is no periprosthetic fract ure. Drains and skin phoenix are present. IMPRESSION: Expected findings following right shoulder arthroplasty. ACT 112: Negative or not required by law. Electronically signed by: Matheus Maldonado M.D. 09/03/2022 6:41 PM
--- NOTE | 2022-09-03 19:48 | Consultation ---
Date of Consultation September 03, 2022 Assessment & Plan (1) Status post total shoulder arthroplasty: (2) Primary osteoarthritis, right shoulder: Post op day# 0 S/P right total shoulder arthroplasty by Dr Moreira EBL#30ml -pain management per ortho -wound management per ortho -PT/OT as appropriate -DVT prophylaxis per ortho -incentive spirometry -monitor H&H for acute blood loss anemia; pre-op Hgb: 11 (3) HTN (hypertension): Stable -Continue amlodipine (4) Hyperlipidemia: Intolerant to statins in past -Diet controlled (5) Prediabetes: A1c: 5.5 on 07/24/2022 -Diet controlled (6) History of hyperkalemia: History hyperkalemia while on lisinopril. Lisinopril has been discontinued Today pre-op K was 4.5 -Monitor BMP DVT Prophylaxis -SCDs Disposition per primary service Follows with Artemio Herr PA-C for routine care Pt was seen and care coordinated with Dr Lucas. See addendum Thank you for this consultation. We will follow the patient with you during their hospital stay. You can reach a member of the [facility] Hospitalist Team 03/11 via [facility] Supervising Physician Co-Signing Physician Notes I have seen and examined the patient and have discussed the case with the provider above. I agree with the assessment and plan as stated. 62 yo M who is recovering well after shoulder surgery. Some numbness in left thumb. Pain well controlled. Hemodynamically stable and afebrile. Oxygenating well on room air. Physical exam is otherwise unremarkable. Left shoulder is in a sling. Medications and preop clearance reviewed. Cont with recommendations above. Thank you for this consultation. DO Lance History of Present Illness Requesting Physician: Dr Moreira Reason for Consultation: Postop medical management Attending Physician: Garrett Moreira MD History of Present Illness Patient is 62-year-old male with PMH HTN, dyslipidemia, gout, history of hyperkalemia while on lisinopril, prediabetes seen in medical consultation s/p right total shoulder arthroplasty today by Dr Moreira. Post op patient reports is doing well. RUE still with numbness. Denies any current pain. Is able to wiggle fingers on right hand. States postop was having a little bit of nausea however after he ate dinner nausea has resolved. Last BM 1 day ago. Denies fever/chills, diaphoresis, V/D/C, BREWER, dizziness, CP, SOB, palpitations, cough, sore throat, abdominal pain, extremity edema, rashes, urinary symptoms. Allergies Allergy/AdvReac Type Severity Reaction Status Date / Time oxycodone [From Percocet] AdvReac NAUSEA AND Verified 08/25/22 08:29 HEADACHE rosuvastatin [From Crestor] AdvReac MYALGIA Verified 08/25/22 08:29 AND NAUSEA Home Medications Medication Instructions Recorded Confirmed Type acetaminophen 325 mg tablet 650 mg PO QID PRN pain #30 tabs 07/29/22 09/03/22 Rx amlodipine 5 mg tablet 5 mg PO DAILY #30 tabs 07/29/22 09/03/22 Rx Patient History Medical History (Updated 09/03/22 @ 19:50 by Barbara Tong PA-C) Asthma has not used inhaler > 7 mos Gout hx HTN (hypertension) controlled, stable per pt Hyperlipidemia controlled w/ diet Prediabetes no meds- diet controlled Rosacea has not had issue in years Surgical History (Updated 09/03/22 @ 19:47 by Barbara Tong PA-C) History of appendectomy History of open reduction and internal fixation (ORIF) procedure left clavicle fx Hx of arthroscopic knee surgery left Hx of colonoscopy Hx of tooth extraction Status post total shoulder arthroplasty Family History (Updated 09/03/22 @ 19:45 by Barbara Tong PA-C) Other Coronary heart disease Diabetes No family history of adverse response to anesthesia Social History Smoking Status: Former smoker Cigarettes Per Day: quit ~16 yrs ago; Second Hand Exposure: No; Do You Dip or Chew Tobacco: No; Tobacco Cessation Education Requested by Patient: No Hx Alcohol Use: Yes Alcohol type: beer Hx Substance Use: No Preferred Language: Persian Communication Ability: Effective Environmental Program Manager Required: No Beliefs That Will Affect Care: None Current Living Situation: Spouse Other Information That Helps Us Care for You: No Feels Safe at Home: Yes Safety Concerns: Feels Safe At This Time Assistive Devices: None Review of Systems Review of Systems: All systems reviewed & are unremarkable except as noted in HPI & below Physical Exam Physical Exam: General: no distress, WDWN Head: normocephalic, atraumatic Eyes:conjunctiva non-injected, anicteric ENT: normal inspection external ears, nose, mucous membranes moist Neck: supple, trachea midline Lungs: clear, no respiratory distress, no wheezing/rhonchi/rales CV: RRR, no murmur, no pretibial edema Abd: normal BS, soft, non-tender Ext: no cyanosis, no calf tenderness; RUE: surgical dressing in place is dry. +hemovac in place with serosanguineous drainage, distal pulses palpable, sensation to light touch intact, +active ROM digits Neuro: A&O x 3, no focal deficits noted, normal affect Skin: warm, dry Results & Data Vital Signs (Past 12 Hours) Vital Signs Temp Pulse Pulse Resp BP BP Pulse Ox 09/03/22 18:40 36.7 C 78 18 138/72 94 09/03/22 18:15 36.7 C 81 17 138/81 95 09/03/22 18:08 09/03/22 17:46 36.4 C L 75 17 162/80 H 96 09/03/22 17:25 36.2 C L 77 18 154/89 H 95 09/03/22 17:15 81 15 164/98 H 96 09/03/22 17:05 75 27 H 162/86 H 100 09/03/22 16:55 90 16 164/95 H 99 09/03/22 16:45 36.2 C L 80 14 169/89 H 98 09/03/22 12:13 36.5 C 81 18 149/93 H 99 O2 Del Method O2 Flow Rate 09/03/22 18:40 Room Air 09/03/22 18:15 Room Air 09/03/22 18:08 Room Air 09/03/22 17:46 Room Air 09/03/22 17:25 Room Air 09/03/22 17:15 Room Air 09/03/22 17:05 Oxymask 2 09/03/22 16:55 Oxymask 5 09/03/22 16:45 Oxymask 5 09/03/22 12:13 Room Air
[2022-09-03] MEDS ORDERED: SENNA 8.6 MG TAB PO SCH (21:00)
[2022-09-03] MEDS: DOCUSATE SODIUM 100 MG CAP PO SCH (21:11)
[2022-09-03] MEDS: ACETAMINOPHEN 500 MG TAB PO SCH (21:11)
[2022-09-03] MEDS: ceFAZolin 2000MG 2,000 MG/15 ML SYR IV SCH (23:21)
[2022-09-04] MEDS: SODIUM CHLORIDE 0.9% 1000ML 1,000 ML IV SCH (04:44)
[2022-09-04] MEDS: ACETAMINOPHEN 500 MG TAB PO SCH (06:12)
[2022-09-04] MEDS: ceFAZolin 2000MG 2,000 MG/15 ML SYR IV SCH (06:12)
--- NOTE | 2022-09-04 07:11 | Orthopedic Progress Note ---
Date of Service September 04, 2022 Assessment & Plan (1) Primary osteoarthritis, right shoulder: Plan: Postop day #1 right total shoulder arthroplasty -PT/OT: Follow TSA protocol -A.m. labs are pending -DVT prophylaxis: SCDs -Pain management as written -Discharge planning: Plan on discharge home today as long as he continues to remain stable. Admission and Anticipated Discharge Date Admission Date: September 03, 2022 Subjective Patient is postop day 1 right total shoulder arthroplasty. He is doing well this morning. Pain is controlled. No other complaints. Denies chest pain, shortness of breath, nausea/vomiting/diarrhea, headaches or dizziness. Review of Systems Review of Systems: All systems reviewed & are unremarkable except as noted in Subjective Physical Exam Physical Exam: Right shoulder: Sling is in place. Dressing is clean, dry, intact. Fingers are mobile with good production grip strength. Distally neurovascular status and sensation is grossly intact. Constitutional: WD/WN, vitals as above Results & Data Vital Signs (Past 12 Hours) Vital Signs Temp Pulse Resp BP Pulse Ox O2 Del Method 09/04/22 07:00 36.5 C 66 16 152/77 H 96 Room Air 09/04/22 03:04 36.3 C L 70 16 141/69 H 96 Room Air 09/03/22 23:29 36.5 C 70 16 145/68 H 95 Room Air 09/03/22 21:10 36.3 C L 77 16 140/72 96 Room Air 09/03/22 19:45 36.4 C L 70 16 134/71 97 Room Air Laboratory Results Lab Results 09/03/22 09/03/22 09/03/22 Range/Units 11:48 12:24 Unknown POC Hgb 10.9 L (14.0-18.0) g/dl POC Hct 32 L (42-52) % POC Sodium 141 (135-144) mmol/L POC Potassium 4.5 (3.3-5.0) mmol/L POC Chloride 106 (101-112) mmol/L POC Total CO2 22 L (24-31) mmol/L POC Anion Gap 19.0 (16-25) mmol/L POC BUN 26 H (7-18) mg/dl POC Creatinine 1.1 (0.6-1.3) mg/dl POC Glucose (other) 101 H (70-99) mg/dl POC Ioniz Calcium Jayshree 1.24 (1.12-1.32) mmol/l SARS-CoV-2, RNA, NAAT NEGATIVE (NEGATIVE) Blood Type A Positive Antibody Screen NEGATIVE
[2022-09-04] MEDS: DOCUSATE SODIUM 100 MG CAP PO SCH (08:06)
[2022-09-04] MEDS ORDERED: MULTIVITAMIN TAB PO SCH (09:00)
[2022-09-04] MEDS ORDERED: amLODIPine BESYLATE 5 MG TAB PO SCH (09:00)
[2022-09-04 09:15] LABS: Basophils # (auto) 0.02 K/uL (0-0.2); Basophils % (auto) 0.2 %; Hematocrit (blood only) 34.5 % (42.0-52.0); Hemoglobin 11.2 g/dl (14.0-18.0); Immature Granulocytes # (auto) 0.06 K/uL (0.01-0.20); Immature Granulocytes % (auto) 0.5 %; Lymphocytes # (auto) 0.91 K/uL (1.2-3.4); Lymphocytes % (auto) 7.4 %; Mean Corpuscular Hemoglobin 29.1 pg (25.0-34.0); Mean Corpuscular Hgb Conc 32.5 g/dL (32.0-36.0); Mean Corpuscular Volume 89.6 fL (80.0-100.0); Mean Platelet Volume 9.5 fL (9.4-12.4); Monocytes # (auto) 0.68 K/uL (0.11-0.59); Monocytes % (auto) 5.5 %; Neutrophils # (auto) 10.64 K/uL (1.40-6.50); Neutrophils % (auto) 86.4 %; Platelet Count 379 K/uL (130-400); RDW Coefficient of Variation 13.6 % (11.5-14.5); RDW Standard Deviation 44.3 fL (36.4-46.3); Red Blood Count 3.85 M/uL (4.70-6.10); White Blood Count 12.31 K/ul (4.8-10.8)
[2022-09-04 09:32] LABS: BUN Creatinine Ratio 25.8 (10-20); Creatinine Clr Calc Pharmacy 66.6 ml/min; Est GFR (African American) 72.3 ml/min; Est GFR (Non-African American) 62.4 ml/min; Potassium 4.6 mmol/L (3.5-5.1)
--- NOTE | 2022-09-05 18:28 | Discharge Summary ---
Date of Service September 05, 2022 Admission HPI Per Admitting Provider 62yo male with PMHx significant for HTN, Gout, asthma, hyperkalemia now normal on recent labs who presents with longstanding right shoulder pain. He has failed conservative measures including injections. Pain interfering with his daily activities. He would like to proceed with surgical intervention. Patient denies headaches, sweats, fevers, chills, double vision, blurred vision, cough, sore throat, dysphagia, chest pain, sob, wheezing, n/v/d/c, numbness, tingling, fatigue, urinary symptoms, mood disorders. ROS positive for right shoulder pain and stiffness. Admission Exam Per Admitting Provider Constitutional: well developed and well nourished; no acute distress Eyes: PERRL, conjunctivae normal, anicteric sclerae ENMT: external ear and nose normal, oropharynx normal Neck: trachea midline, no thyromegaly A Respiratory: normal respiratory effort, lungs clear to auscultation Cardiovascular: RRR, no murmur, no edema Musculoskeletal: Right shoulder: Tenderness anterior glenoid. Crepitation with ROM. Pain with resistive strength testing. 5-/5 abduction, 5-/5 ER and IR. Painful ROM. FF to 60 degrees and abduction to 60 degrees actively. Positive impingement signs. Skin: no rashes, warm and dry Neurologic: patellar DTR's 2+ bilat, sensation intact Psychiatric: A+Ox3, euthymic affect Principal Diagnosis Right shoulder osteoarthritis Discharge Exam Right shoulder: Sling is in place. Dressing is clean, dry, intact. Fingers are mobile with good sap pp consultant strength. Distally neurovascular status and sensation is grossly intact. Discharge Data Allergies Allergy/AdvReac Type Severity Reaction Status Date / Time oxycodone [From Percocet] AdvReac NAUSEA AND Verified 08/25/22 08:29 HEADACHE rosuvastatin [From Crestor] AdvReac MYALGIA Verified 08/25/22 08:29 AND NAUSEA Consultations 08/29/22 16:24 Consult Hospitalist Routine Procedures Performed Operation Date: 09/03/22 14:00 Actual Procedures p Right Total Shoulder Stemless Arthroplasty, biceps Tenodesis(Right) - Garrett Moreira MD Ordered Studies 09/03/22 05:00 US - OR guided needle placemen Routine Hospital Course (1) Primary osteoarthritis, right shoulder: Postop day #1 right total shoulder arthroplasty -PT/OT: Follow TSA protocol -A.m. labs are pending -DVT prophylaxis: SCDs -Pain management as written -Discharge planning: Plan on discharge home today as long as he continues to remain stable. Lab Results 09/03/22 09/03/22 09/03/22 Range/Units 11:48 12:24 Unknown WBC (4.8-10.8) K/ul RBC (4.70-6.10) M/uL Hgb (14.0-18.0) g/dl POC Hgb 10.9 L (14.0-18.0) g/dl Hct (42.0-52.0) % POC Hct 32 L (42-52) % MCV (80.0-100.0) fL MCH (25.0-34.0) pg MCHC (32.0-36.0) g/dL RDW Std Deviation (36.4-46.3) fL RDW Coeff of Kwabena (11.5-14.5) % Plt Count (130-400) K/uL MPV (9.4-12.4) fL Immature Gran % (Auto) % Neut % (Auto) % Lymph % (Auto) % Fallon % (Auto) % Eos % (Auto) % Baso % (Auto) % Neut # (Auto) (1.40-6.50) K/uL Lymph # (Auto) (1.2-3.4) K/uL Fallon # (Auto) (0.11-0.59) K/uL Eos # (Auto) (0-0.50) K/uL Baso # (Auto) (0-0.2) K/uL Immature Gran # (Auto) (0.01-0.20) K/uL POC Sodium 141 (135-144) mmol/L Sodium (136-145) mmol/L POC Potassium 4.5 (3.3-5.0) mmol/L Potassium (3.5-5.1) mmol/L POC Chloride 106 (101-112) mmol/L Chloride (98-107) mmol/L Carbon Dioxide (21-32) mmol/L POC Total CO2 22 L (24-31) mmol/L Anion Gap (3-11) POC Anion Gap 19.0 (16-25) mmol/L POC BUN 26 H (7-18) mg/dl BUN (6-23) mg/dl Creatinine (0.6-1.4) mg/dl POC Creatinine 1.1 (0.6-1.3) mg/dl Est Cr Clr Drug Dosing ml/min Est GFR ( Amer) ml/min Est GFR (Non-Af Amer) ml/min BUN/Creatinine Ratio (10-20) Glucose (70-99(Fasting)) mg/dl POC Glucose (other) 101 H (70-99) mg/dl Calcium (8.6-10.3) mg/dl POC Ioniz Calcium Jayshree 1.24 (1.12-1.32) mmol/l SARS-CoV-2, RNA, NAAT NEGATIVE (NEGATIVE) Blood Type A Positive Antibody Screen NEGATIVE 09/04/22 09/04/22 Range/Units 08:28 08:28 WBC 12.31 H (4.8-10.8) K/ul RBC 3.85 L (4.70-6.10) M/uL Hgb 11.2 L (14.0-18.0) g/dl POC Hgb (14.0-18.0) g/dl Hct 34.5 L (42.0-52.0) % POC Hct (42-52) % MCV 89.6 (80.0-100.0) fL MCH 29.1 (25.0-34.0) pg MCHC 32.5 (32.0-36.0) g/dL RDW Std Deviation 44.3 (36.4-46.3) fL RDW Coeff of Kwabena 13.6 (11.5-14.5) % Plt Count 379 (130-400) K/uL MPV 9.5 (9.4-12.4) fL Immature Gran % (Auto) 0.5 % Neut % (Auto) 86.4 % Lymph % (Auto) 7.4 % Fallon % (Auto) 5.5 % Eos % (Auto) 0.0 % Baso % (Auto) 0.2 % Neut # (Auto) 10.64 H (1.40-6.50) K/uL Lymph # (Auto) 0.91 L (1.2-3.4) K/uL Fallon # (Auto) 0.68 H (0.11-0.59) K/uL Eos # (Auto) 0.00 (0-0.50) K/uL Baso # (Auto) 0.02 (0-0.2) K/uL Immature Gran # (Auto) 0.06 (0.01-0.20) K/uL POC Sodium (135-144) mmol/L Sodium 136 (136-145) mmol/L POC Potassium (3.3-5.0) mmol/L Potassium 4.6 (3.5-5.1) mmol/L POC Chloride (101-112) mmol/L Chloride 104 (98-107) mmol/L Carbon Dioxide 24 (21-32) mmol/L POC Total CO2 (24-31) mmol/L Anion Gap 8 (3-11) POC Anion Gap (16-25) mmol/L POC BUN (7-18) mg/dl BUN 32 H (6-23) mg/dl Creatinine 1.24 (0.6-1.4) mg/dl POC Creatinine (0.6-1.3) mg/dl Est Cr Clr Drug Dosing 66.6 ml/min Est GFR ( Amer) 72.3 ml/min Est GFR (Non-Af Amer) 62.4 ml/min BUN/Creatinine Ratio 25.8 H (10-20) Glucose 129 H (70-99(Fasting)) mg/dl POC Glucose (other) (70-99) mg/dl Calcium 9.0 (8.6-10.3) mg/dl POC Ioniz Calcium Jayshree (1.12-1.32) mmol/l SARS-CoV-2, RNA, NAAT (NEGATIVE) Blood Type Antibody Screen Total Time Total Time Spent Total Time Spent (In Minutes): 20 Discharge Plan Discharge Items Patient Disposition: Home - Self-Care Reason For Visit: Right Shoulder Primary Osteoarthrits, Partial Tear Discharge Diagnosis: Right shoulder osteoarthritis Activity: Per Instructions section Non-emergency contact: Surgeon Call non-emergency contact if: you have any medication questions, your pain is concerning for you, you have a fever, your temperature is above 101, your wound has increased redness and your wound has increased drainage Follow-up/Referrals: Artemio Herr PA-C [Primary Care Provider] - Diet: Regular Addtl Attending Provider Instructions: ACTIVITY RECOMMENDATIONS: SELF CARE INSTRUCTIONS AFTER TOTAL SHOULDER ARTHROPLASTY A. You may do daily exercises as taught in physical therapy while in hospital. No lifting with the operative arm. Please schedule your outpatient physical therapy appointment to begin within 2-3 days after leaving the hospital. Specific restrictions will be written on your physical therapy prescription that is provided to you. B. You are to wear your sling/immobilizer at all times EXCEPT when performing your daily exercises, participating in physical therapy and for hygiene purpose s. C. You may perform dry, daily dressing changes. Please keep your incision covered. You may shower 48 hours after surgery. Do not apply soap or any ointment/lotions directly over incision. Do not soak incision in bath tub/swimming pool. D. You may use ice as needed to operative shoulder. SPECIAL CARE INSTRUCTIONS: MEDICATION INSTRUCTIONS: *It is recommended you take Aspirin 325mg daily for four weeks post-op. VERY IMPORTANT TO READ AND REVIEW A. There are a few signs you need to watch for after you are home. Call [facility] at [phone] if you experience any of the followin. Increased severe shoulder pain. Some pain is expected especially when you exercise. 2. Increased swelling in you shoulder or arm; pain or swelling in either upper extremity. 3. Any fluid drainage from the incision. 4. Shortness of breath or chest pain. B. Please call [facility] at [phone] if you have any questions or concerns about your operation or recovery. C. Call your physician if: 1. Temperature is greater than 101 degrees (F). 2. Pain is not relieved by prescribed pain medications. 3. Increase drainage or redness from incision. 4. Unanswered questions or concerns. FOLLOW UP VISIT: Please call [facility] at [phone] to schedule a follow up appointment with Dr. Moreira or his PA in 12-14 days from your surgery date. Stand-Alone Forms: [employer], Smoking Cessation Medications and DC Order Prescriptions: New acetaminophen [Tylenol Extra Strength] 500 mg Tablet 1,000 mg PO Q8 Qty: 60 0RF tramadol 50 mg Tablet 50 - 100 mg PO .Q4h-6h MDD 6 PRN (Reason: pain) Qty: 30 0RF Rx Instructions: Ongoing therapy, Dr. Moreira supervising Continued amlodipine 5 mg tablet 5 mg PO DAILY Qty: 30 0RF Discontinued acetaminophen 325 mg Tablet 650 mg PO QID PRN (Reason: pain) Qty: 30 0RF Discharge Orders: Discharge Order (Routine); Ordered 09/04/22 Ordered By: Oscar Dillon/Other Patient Handouts: Shoulder Replace Home Recovery Admission Data Admit Date/Time: 09/03/22 16:45 Attending Provider: Garrett Moreira Admit Provider: Garrett Moreira Primary Care Provider: Artemio Herr Other Providers: Romero Hernandez ; Akilah Mallory Other Interventions: Discharge Summary Assessment (RN) Last Done: 09/04/22 10:07
== END 2022-09-04 11:20 | disposition home or self-care (01) ==
LOC: 3W 11:48 → ASU 11:48

== ENCOUNTER 2023-10-26 05:01 | Observation (INO) ==
--- NOTE | 2023-09-15 08:56 | PAT Medication Instructions ---
Medication Instructions Date of Service September 15, 2023 Home Medications acetaminophen 500 mg tablet (Tylenol Extra Strength) 1,000 mg PO UD PRN Pain lisinopril 20 mg tablet 20 mg PO QAM DO NOT take the morning of surgery lisinopril 20 mg tablet 20 mg PO QAM Take morning of surgery With a small sip of water, OTHERWISE NOTHING TO EAT OR DRINK AFTER MIDNIGHT: acetaminophen 500 mg tablet (Tylenol Extra Strength) 1,000 mg PO UD PRN Pain (if needed) Other Notes If you have any questions please call us at [phone] or [phone] or [phone] or [phone]
--- NOTE | 2023-09-30 09:51 | Anesthesiology Consultation ---
Date of Service September 30, 2023 Assessment & Plan (1) Encounter for pre-operative examination: - Check BSG AM DOS - Infectious disease screening: Per assessment on 09/30/23: No known recent infectious disease contacts or current infectious disease symptoms. - Outpatient joint pathway: Per OR booking comments, plan for outpatient joint program. Patient seen at [facility] 09/30/23. Patient is an acceptable candidate to proceed as planned outpatient joint pathway pending perioperative course. Surgeon's office arranging post-op home management. - Elevated creatinine: Creatinine 1.5 on 09/22/23 preop labs. No noted history of CKD. Note written to PCP regarding elevated creatinine- Awaiting response (Dr. Herr/[facility]). Chart Review Chart Review: Patient seen in Pre Admission Testing Teaching & Discussion Pre-Anesthesia Teaching/Discussion Notes: Instructed NPO after midnight before surgery,except medications with 15 cc of water. Medication instructions provided according to the [facility] guidelines. History Surgery Operation Date: 10/26/23 07:15 Proposed Procedures p OP: Left Total Shoulder Arthroplasty, Left Shoulder Bicep Tenodesis - Garrett Moreira MD Height/Weight Height: 5 ft 11 in Weight: 84.1 kg Allergies Allergy/AdvReac Type Severity Reaction Status Date / Time oxycodone [From Percocet] AdvReac Unknown Nausea, Verified 09/24/23 11:44 headache rosuvastatin [From Crestor] AdvReac Unknown Myalgia, Verified 09/24/23 11:44 nausea Medications Home Medications Medication Instructions Recorded Confirmed Last Taken acetaminophen 500 mg tablet 1,000 mg PO UD PRN Pain 09/14/23 09/14/23 Unknown (Tylenol Extra Strength) lisinopril 20 mg tablet 20 mg PO QAM 09/14/23 09/14/23 Unknown Past Medical History Medical History Arthritis History of asthma History of colon polyps History of gout History of kidney injury Hx infection infancy- limited details, no residual issues HTN (hypertension) Hyperlipidemia Diet controlled Osteoarthritis Prediabetes Diet controlled Exercise / Class Metabolic Activity II 4-5 Yardwork/Stairs/Walk up hill Past Family History Family History Other Coronary heart disease Diabetes No family history of adverse response to anesthesia Past Surgical History Surgical History History of appendectomy History of open reduction and internal fixation (ORIF) procedure R/t Left clavicle fracture Hx of arthroscopic knee surgery Left Hx of colonoscopy Hx of tooth extraction Status post total shoulder arthroplasty Right TSA (09/03/2022): Grade view 1, MAC4, ETT 7.5 + regional at [facility] Past Anesthesia History No Hx of Anesthesia Complications and No Family Hx of Anesthesia Complications History of PONV No Hx of PONV and No Hx of Motion Sickness Social History Smoking Status: Former smoker tobacco type: cigarettes Do You Dip or Chew Tobacco: No Smoking End Date: Quit 17 years ago Alcohol type: beer alcohol intake frequency: a few times a week Hx Substance Use: No substance use type: does not use Review of Systems Patient denies chest pain, shortness of breath, dyspnea on exertion, fever, chills, cough, wheezing. Physical Exam Vital Signs BP 100/62 P 65 TEMP 98.3 SP02 95%RA RESP 16 Physical Full cervical extension range of motion. Full TMJ range of motion. TMD 3.5 finger breaths Mallampati Score 2 Dentition: missing teeth, + crown Lungs: clear throughout to auscultation Cardiac: regular rate and rhythm, no murmurs noted Spine: normal Carotid arteries: negative bruit Extremities: no LE edema Trimmed chin Lab Results Anesthesia Preop Results Results Anesthesia Widget: PTT 25 Seconds (21-31) 09/30/23 Urine Color Yellow 09/30/23 Urine Appearance Clear (Clear) 09/30/23 Urine pH 7.0 (4.5-7.5) 09/30/23 Urine Specific [place] 1.015 (1.000-1.030) 09/30/23 Urine Protein 2+ (Negative) H 09/30/23 Urine Glucose (UA) Negative (Negative) 09/30/23 Urine Ketones Negative (Negative) 09/30/23 Urine Blood Negative (Negative) 09/30/23 Urine Nitrite Negative (Negative) 09/30/23 Urine Bilirubin Negative (Negative) 09/30/23 Urine Urobilinogen Negative (Negative) 09/30/23 Urine Leukocyte Esterase Negative (Negative) 09/30/23 Urine WBC (Auto) 0-5 /hpf (0-5) 09/30/23 Urine RBC (Auto) 0-2 /hpf (0-2) 09/30/23 Urine Hyaline Casts (Auto) 0-2 /lpf (0-2) 09/30/23 Urine Epithelial Cells (Auto) 0-2 /hpf (0-2) 09/30/23 Urine Bacteria (Auto) None Seen (None Seen) 09/30/23 Blood Type A Positive 09/30/23 Antibody Screen NEGATIVE 09/30/23 Testing Laboratory Results 09/22/23 WBC 7.91 H/H 13.0/39.9 PLATELETS 292 HGBA1C 5.9% PT 12.6 INR 0.9 SODIUM 139 POTASSIUM 4.8 CHLORIDE 105 CO2 22 BUN 41 CREATININE 1.5 GLUCOSE 78 Electrocardiogram Date: 09/22/23 Findings: + NSR @ (66) Chest X-Ray Date: 09/30/23 FINDINGS: Heart size is normal. No pneumothorax or pleural effusion. The lungs are clear. Mild hyperinflation. Left clavicular ORIF hardware. Right shoulder arthroplasty. Chronic upper lumbar compression deformity. Severe left glenohumeral osteoarthritis. IMPRESSION: Mild hyperinflation without acute process.
--- NOTE | 2023-10-25 17:50 | History & Physical Report ---
Date of Service October 25, 2023 Assessment & Plan (1) Osteoarthritis of left shoulder region: Plan: End-stage osteoarthritis left shoulder. Plan is to proceed with simplicity stemless total shoulder replacement with biceps tenodesis. Osteoarthritis type: primary Qualified Code(s): M19.012 - Primary osteoarthritis, left shoulder History of Present Illness Chief Complaint: Chronic left shoulder pain Primary Care Provider: Artemio Herr PA-C 63-year-old male with chronic osteoarthritis in his left shoulder and successful right total shoulder replacement now wants proceed with left total shoulder replacement. Patient also has biceps tendinopathy tenosynovitis clinically. Patient has prior open reduction total fixation of clavicle on that shoulder with plate on the clavicle of the left shoulder. Patient denies headaches, sweats, fevers, chills, double vision, blurred vision, cough, sore throat, dysphagia, chest pain, sob, wheezing, n/v/d/c, numbness, tingling, fatigue, urinary symptoms, mood disorders. ROS positive for hiatal hernia and a chipped tooth. Allergies Allergy/AdvReac Type Severity Reaction Status Date / Time oxycodone [From Percocet] AdvReac Unknown Nausea, Verified 09/24/23 11:44 headache rosuvastatin [From Crestor] AdvReac Unknown Myalgia, Verified 09/24/23 11:44 nausea Home Medications Medication Instructions Recorded Confirmed Type acetaminophen 500 mg tablet 1,000 mg PO UD PRN Pain 09/14/23 09/14/23 History (Tylenol Extra Strength) lisinopril 20 mg tablet 20 mg PO QAM 09/14/23 09/14/23 History Past Med/Surg History Problem List (Updated 10/25/23 @ 17:48 by Garrett Moreira MD) Osteoarthritis of left shoulder region Encounter for pre-operative examination Medical History Arthritis History of asthma History of colon polyps History of gout History of kidney injury Hx infection infancy- limited details, no residual issues HTN (hypertension) Hyperlipidemia Diet controlled Osteoarthritis Prediabetes Diet controlled Surgical History History of appendectomy History of open reduction and internal fixation (ORIF) procedure R/t Left clavicle fracture Hx of arthroscopic knee surgery Left Hx of colonoscopy Hx of tooth extraction Status post total shoulder arthroplasty Right TSA (09/03/2022): Grade view 1, MAC4, ETT 7.5 + regional at [facility] Family History Other Coronary heart disease Diabetes No family history of adverse response to anesthesia Social History Smoking Status: Former smoker Smoking End Date: Quit 17 years ago; Second Hand Exposure: No; Do You Dip or Chew Tobacco: No; Hx Substance Use: No Preferred Language: Thai Communication Ability: Effective Progress Man Required: No Beliefs That Will Affect Care: None Current Living Situation: Spouse Feels Safe at Home: Yes Assistive Devices: Glasses Review of Systems All systems reviewed & are unremarkable except as noted in HPI & below Physical Exam Constitutional: WD/WN, vitals as above Respiratory: normal respiratory effort; no respiratory distress Mild right-sided wheeze Cardiovascular: Rate/Rhythm: regular rate and regular rhythm Musculoskeletal: Left shoulder exam demonstrates painful range of motion with crepitation external rotation 45 degrees internal rotation 20 degrees internal rotation behind back to S1 flexion 120 degrees and abduction 60 degrees. Pain at end range of motion. Normal strength. Normal circulation. Old transverse scar over the clavicle oriented previous surgery. Right shoulder scar from total shoulder replacement with good passive range of motion and active range of motion 170 degrees overhead. Skin: no rashes, warm and dry Neurologic: normal touch/pain/proprioception Psychiatric: A+Ox3, euthymic affect Results & Data Diagnostic Findings Shoulder x-rays demonstrate grade 4 osteoarthritis glenohumeral joint type a concentric wear pattern type I acromion and reconstructive plate on clavicle. Left shoulder x-ray
--- OUTSIDE RECORDS SUMMARY | 2023-10-26 05:04 | External Medical Summary | Summary of Care ---
Author Name Unknown Organization [facility] Address [address] [place] [address] Phone [phone] Care Team Providers Care Molder Setter Name Role Phone Artemio Herr PA-C Primary Care Provider [phone] Reason for Visit * Reason Onset Date Comments Advice 10/12/202310/11 Encounter Details Date Type Department Care Team (Late st Contact Info) Description 10/12/2023 Telephone [facility] [address] [place] [phone] Artemio Herr PA-C [address] [place] [id number] Advice (10/11) Allergies Active Allergy Reactions Criticality Noted Date Comments Oxycodone-Acetaminophen Other (Please comment) Medium 05/02/2016 Nausea and headache Rosuvastatin Other (Please comment) 01/16/2015 Body aches and nausea documented as of this encounter (statuses as of 10/12/2023) Medications Medication Sig Dispensed Refills Start Date End Date Status aspirin enteric coated 81 MG TBECIndications:Dysl ipidemia, goal LDL below 130 Take 2 Tabs by mouth daily. 100 Tab 3 12/02/2017 Active Albuterol Sulfate HFA 108 (90 Base) MCG/ACT Inhalation Aerosol SolutionIndications: Asthma, allergic, mild persistent, uncomplicated Inhale 2 Puffs by mouth every 4 hours as needed for Wheezing. 18 g 5 12/11/2020 Active Budesonide-Formotero l Fumarate 80-4.5 MCG/ACT Inhalation Aerosol (Symbicort)Indicatio ns:Mild intermittent asthma with allergic rhinitis without complication Inhale by mouth 2 Puffs in the morning AND 2 Puffs before bedtime. 10.2 g 12 07/31/2021 Active Additional Information Patient not taking.Reported on 08/06/2022 Pantoprazole Sodium 20 MG Oral Tablet Delayed Release (Protonix)Indication s:Hiatal hernia Take by mouth 1 Tablet in the morning. 30 minutes before the first meal of the day. Do not crush, split or chew the tablet. 30 Tablet 5 07/31/2021 Active Additional Information Patient not taking.Reported on 08/06/2022 Ferrous Sulfate 325 (65 Fe) MG Oral Tablet (Feosol) Take by mouth 1 Tablet daily with breakfast . Take with citrus fruit or orange juice 60 Tablet 11 10/30/2021 Active Additional Information Patient not taking.Reported on 07/28/2023 Indomethacin 50 MG Oral CapsuleIndications:B union of left foot,Gout of big toe,Acute idiopathic gout involving toe of right foot TAKE 1 CAPSULE BY MOUTH THREE TIMES DAILY NEEDED WITH FOOD FOR PAIN 40 Capsule 1 06/11/2022 Active Additional Information Patient not taking.Reported on 08/06/2022 Colchicine 0.6 MG Oral Tablet Take two tablets by mouth now. Take a third tablet one hour later. 3 Tablet 09/06/2022 Active Additional Information Patient not taking.Reported on 07/28/2023 predniSONE 10 MG Oral Tablet (Deltasone)Indicatio ns:Acute idiopathic gout, unspecified site Take 5 tabs for 2 days, 4 tabs for 2 days, 3 tabs for 2 days, 2 tabs for 2 days 1 tab for 2 days 30 Tablet 04/24/2023 Active Additional Information Patient not taking.Reported on 07/28/2023 Lisinopril 20 MG Oral Tablet (Prinivil) Take 1 Tablet by mouth in the morning. Active documented as of this encounter (statuses as of 10/12/2023) Active Problems Problem Noted Date Diagnosed Date HTN, goal below 140/90 03/10/2018 Adenoma of colon 07/03/2014 TERMINATED MEDICATION USAGE AGREEMENT 05/24/2013 Overview: Terminated 01/23/2015 due to marijuana on 01/16/15 drug screen Tiffanie Becerra PA-C, vicodin once daily for diffuse arthralgias Dyslipidemia, goal LDL below 130 06/14/2012 Overview: Simvastatin + leg cramps, atorvastatin + myalgias, rosuvastatin + myalgias Nocturia 03/04/2011 Impotence of organic origin 03/04/2011 Rotator cuff syndrome 09/29/2006 Rosacea 12/06/2001 Mild intermittent asthma wit h allergic rhinitis without complication Gout Overview: Knee via joint fluid analysis documented as of this encounter (statuses as of 10/12/2023) Resolved Problems Problem Noted Date Diagnosed Date Resolved Date Prediabetes 12/20/2019 08/20/2022 Overview: Per Prediabetes protocol IFG (impaired fasting glucose) 12/03/2017 07/31/2021 Overview: FBG 11/28 = 105 Diverticulosis of colon 07/03/201411/12 Overview: [place] 06/2014 Internal derangement of knee 09/29/2006 08/23/2008 ADVANCE DIRECTIVE INFORMATION 09/15/2006 12/02/2017 Overview: No, Advance Directive brochure offered , patient declined. Right wrist injury with swelling 05/03/1998 05/26/2003 Gouty arthropathy 12/21/2007 Overview: ICD-10 update of inactive term Acne varioliformis 2 Dyslipidemia, goal to be determined 07/01/2011 documented as of this encounter (statuses as of 10/12/2023) Immunizations Name Administration Dates Next Due Pneumococcal Polysaccharide PPV23 (Pneumovax) 09/25/2008 Seasonal Influenza, Split, I IV3, With Preserve, Inj 02/12/2012,03/04/2011(Deferred: Patient Refused) TD, Preservative Free 12/02/2017 TDAP, Age 7 and older, IM (Adacel) 10/05/2007 documented as of this encounter Social History Tobacco Use Types Packs/Day Years Used Date Smoking Tobacco: Former Cigarettes 0.5 10 1 04/13/1984 - 02/11/1995 Smokeless Tobacco: Never Alcohol Use Standard Drinks/Week Comments Yes 0 (1 standard drink = 0.6 oz pure alcohol) rare- was a problem 15 years ago PHQ-2 Answer Date Recorded PHQ Adult Total Score 0 12/23/2022 Hunger Vital Sign Answer Date Recorded Within the past 12 months, y ou worried that your food would run out before you got the money to buy more. Never true 07/28/19 24 Within the past 12 months, t he food you bought just didn't last and you didn't have money to get more. Never true 07/28/2023 Childcare Answer Date Recorded Do you feel overwhelmed with taking care of a child, family member or friend? No 07/28/2023 Does your family need help f inding childcare? (Household - for ages 0-17 years) Not on file 07/28/2023 Clothing Answer Date Recorded Have you been unable to get clothing when it was really needed? No 07/28/2023 Is your family able to get c lothes or diapers when needed? (Household - for ages 0-17 years) Not on file 07/28/2023 Personal Safety Answer Date Recorded Do you feel unsafe or have concerns for your saf ety? No 07/28/2023 Do you have concerns for you r family's safety? (Household - for ages 0-17 years) Not on file 07/28/2023 Utilities Answer Date Recorded Do you have trouble paying y our heating, water, or electric bill? No 07/28/2023 Is your family able to pay t he heat, water, or electric bill? (Household - for ages 0-17 years) Not on file 07/28/2023 Does your family have access to good internet? (Household - for ages 0-17 years) Not on file 07/28/2023 Employment Status Answer Date Recorded Are you unemployed or without regular income? No 07/28/2023 Does the household have a re gular source of income? (Household - for ages 0-17 years) Not on file 07/28/2023 Social Connections Answer Date Recorded How often do you feel lonely or isolated from th ose around you? Never 07/28/2023 Financial Resource Strain Answer Date R ecorded Do you have any trouble payi ng for your medications, or do you think you might in the future? No 07/28/2023 Does your family have troubl e paying for medicine? (Household - for ages 0-17 years) Not on file 07/28/2023 Transportation Needs Answer Date Record ed READ ONLY Do you have troubl e getting a ride to medical visits or work? Never True 07/28/2023 Does your family have a hard time getting a ride to doctors visits? (Household - for ages 0-17 years) Not on file 07/28/2023 Has lack of transportation k ept you from medical appointments, meetings, work, or from getting things needed for daily living? Check all that apply. (Adult - for ages 18 years and over) Not on file 07/28/2023 Do you (or your family) have trouble finding or paying for a ride (transportation)? (Household - for ages 0-17 years) Not on file 07/28/2023 Housing Stability Answer Date Recorded Do you currently live in a s helter or have no steady place to sleep at night? No 07/28/2023 READ ONLY Do you think you a re at risk of becoming homeless? No 07/28/2023 Does your family worry about paying for your home or becoming homeless? (Household - for ages 0-17 years) Not on file 0 07/28/2023 Are you homeless or worried that you might be in the future? (Adult - for ages 18 years and over) Not on file Are you (or your family) javan eless or worried that you might be in the future? (Household - for ages 0-17 years) Not on file Food Insecurity Answer Date Recorded Do you need food for this week? No 07/28/2023 Are you able to get enough f ood for your family? (Household - for ages 0-17 years) Not on file 07/28/2023 Does your family need food t his week? (Household - for ages 0-17 years) Not on file 07/28/2023 Do you always have enough fo od for your family? (Household - for ages 0-17 years) Not on file 07/28/2023 Sex and Gender Information Value Date Recorded Sex Assigned at Male 07/06/2018 9:54 AM EDT Gender Identity Male 07/06/2018 9:54 AM EDT Sexual Orientation Straight 07/06/2018 9: 54 AM EDT Job Start Date Occupation Industry Not on file Not on file Not on file documented as of this encounter Miscellaneous Notes * Telephone Encounter - Sudha Mccrary LPN - 10/12/2023 4:24 PM EDT Patient aware and verbalized understanding Pt decline appt, he doesn't want the excuse. * Telephone Encounter - Feroz Nam LPN - 10/12/2023 4:10 PM EDT Attempted to contact pt to discuss symptoms further. Pt will need an appt to discuss symptoms further if he has not been seen for this recently. No answer, left message requesting a return call to [phone]. * Telephone Encounter - Sharlene Bill OSA - 10/12/2023 8:48 AM EDT School or Work Note?: work Has patient been seen for the current issue? If yes patient has been seen for the current issue, list issue/symptoms causing missed work/school (Call Details not required): no If no patient has not been seen for the current issue, complete Call Details. 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 Fax number or phone number to call when note is completed: [phone] documented in this encounter Plan of Treatment Upcoming Encounters Date Type Department Care Team (Late st Contact Info) Description 12/28/2023 3:40 PM EDT Office Visit [facility] [address] [place] [phone] Artemio Herr PA-C [place] [id number] Scheduled Procedures Name Priority Associated Diagnoses Date/Ti me COLONOSCOPY FLEXIBLE PROXIMA L DIAGNOSTIC Recall History of colonic polyps Health Maintenance Due Date Last Done Comments Albumin/Creatinine Ratio 1979 Cologuard 2006 Sigmoidoscopy 2006 Pneumococcal Vaccine: Pediatrics (0 to 5 Years) and At-Risk Patients (6 to 64 Years) (2 of 2 - PCV) 09/25/2009 09/25/2008 Zoster Vaccines (1 of 2) 2011 Fecal Occult Blood Test 12/26/2017 12/26/2016 COVID-19 Vaccine (1 - 2022- season) 2022 Colonoscopy 01/04/2023 01/04/2018, 12/13, 07/03/2014, Additional history exists Colorectal Cancer Screening 01/04/2023 Influenza Vaccine (FLU shot) (#1) 2023 02/12/2012 Depression Screening 12/24/2023 12/23/2022 GFR 09/21/2024 09/22/2023, 07/13, 07/24/2022, Additional history exists Diabetes Screening 09/21/2026 09/22/2023, 0 09/22/2023, 08/06/2022, Additional history exists Lipid Panel 07/25/2027 07/24/2022, 11/13, 12/12/2019, Additional history exists DTaP,Tdap,and Td Vaccines (3 - Td or Tdap) 12/03/2027 12/02/2017, 10/05/2007, 06/11/1996 RETIRED - COLONOSCOPY-EVERY 5 YRS AGES 18-100 Discontinued 01/04/2018, 01/04/2018, 07/03/2014, Additional history exists GARDASIL-HPV IMMUNIZATION SERIES Aged Out No longer eligible based on patient's age to complete this topic Hepatitis B Aged Out No longer eligi ble based on patient's age to complete this topic MENINGOCOCCAL (MENACTRA/MENVEO) Aged Out No longer eligible based on patient's age to complete this topic documented as of this encounter Medical Devices Not on filedocumented as of this encounter Care Teams Molder Setter Relationship Specialty Start Date End Date Artemio Herr PA-C [address] [place] [phone] PCP - General Physician Collective Bargaining Specialist 07/06/18 documented as of this encounter
--- OUTSIDE RECORDS SUMMARY | 2023-10-26 05:05 | External Medical Summary | Summary of Care ---
Author Name Unknown Organization [facility] Address [address] [place] [address] Phone [phone] Care Team Providers Care Wire Inspector Name Role Phone Artemio Herr PA-C Primary Care Provider [phone] Encounter Details Date Type Department Care Team (Late st Contact Info) Description 10/06/2023 Orders Only [facility] 21 [facility] [place] [phone] Artemio Herr PA-C [address] [facility] [place] [address] Allergies Active Allergy Reactions Criticality Noted Date Comments Oxycodone-Acetaminophen Other (Please comment) Medium 05/02/2016 Nausea and headache Rosuvastatin Other (Please comment) 01/16/2015 Body aches and nausea documented as of this encounter (statuses as of 10/06/2023) Medications Medication Sig Dispensed Refills Start Date [...] as of this encounter (statuses as of 10/06/2023) Active Problems Problem Noted Date Diagnosed Date [...] as of this encounter (statuses as of 10/06/2023) Resolved Problems Problem Noted Date Diagnosed Date Resolved Date Prediabetes 12/20/2019 08/20/2022 Overview: Per Prediabetes protocol IFG (impaired fasting glucose) 12/03/2017 07/31/2021 Overview: FBG 11/28 = 105 Diverticulosis of colon 07/03/201411/12 Overview: [place] 06/2014 Internal derangement of knee 09/29/2006 08/23/2008 ADVANCE DIRECTIVE INFORMATION 09/15/2006 12/02/2017 Overview: No, Advance Directive brochure offered , patient declined. Right wrist injury with swelling 05/03/1998 05/26/2003 Gouty arthropathy 12/21/2007 Overview: ICD-10 update of inactive term Acne varioliformis 2 Dyslipidemia, goal to be determined 07/01/2011 documented as of this encounter (statuses as of 10/06/2023) Immunizations Name Administration Dates Next Due Pneumococcal [...] on file documented as of this encounter Plan of Treatment Upcoming Encounters Date Type Department Care Team (Late st Contact Info) Description 12/28/2023 3:40 PM EDT Office Visit [facility] [place] [address] [place] [phone] Artemio Herr PA-C [address] [place] [id number] Scheduled Procedures Name Priority Associated Diagnoses Date/Ti [...] Occult Blood Test 12/26/2017 12/26/2016 COVID-19 Vaccine ( - 2022- season) 2022 Colonoscopy 01/04/2023 01/04/2018, 12/13, 07/03/2014, Additional history exists Colorectal Cancer Screening 01/04/2023 Influenza Vaccine (FLU shot) (Season Ended) 2023 02/12/2012 Depression Screening 12/24/2023 12/23/2022 GFR 09/21/2024 09/22/2023, 07/13, 07/24/2022, Additional history exists Diabetes Screening 09/21/2026 09/22/2023, 0 09/22/2023, 08/06/2022, Additional history exists Lipid Panel 07/25/2027 07/24/2022, 08/3 04/2020, 12/12/2019, Additional history exists DTaP,Tdap,and Td Vaccines [...] Not on filedocumented as of this encounter Procedures Procedure Name Priority Date/Time Associated Diagnosis Comments CHEMISTRY-OUTSIDE Routine 09/04/2022 documented in this encounter Results * (ABNORMAL) CHEMISTRY-OUTSIDE (09/04/2022) Not all results display below - see scan for full detail OUTSIDE LAB (SEE SCANNED REPORT) Comment:SEE SCAN - CBCD CREATININE-OUTSID E LAB OUTSIDE LAB (SEE SCANNED REPORT) EGFR-OUTSIDE LAB OUT SIDE LAB (SEE SCANNED REPORT) POTASSIUM-OUTSIDE LAB OUTSIDE LAB (SEE SCANNED REPORT) GLUCOSE-OUTSIDE LAB OUTSIDE LAB (SEE SCANNED REPORT) HOURS FASTING OUTSID E LAB (SEE SCANNED REPORT) TRIGLYCERIDES-OUT SIDE LAB OUTSIDE LAB (SEE SCANNED REPORT) CHOLESTEROL-OUTSI DE LAB OUTSIDE LAB (SEE SCANNED REPORT) HDL-OUTSIDE LAB OUTS REAL LAB (SEE SCANNED REPORT) CHOL/HDL RATIO-OUTSIDE LAB OUTSIDE LA B (SEE SCANNED REPORT) LDL (CALCULATED)-OUTS REAL LAB OUTSIDE LAB (SEE SCANNED REPORT) LDL (DIRECT MEASURE)-OUTSIDE LAB OUTSIDE LAB (SEE SCANNED REPORT) HEMOGLOBIN, R0M-OOUQBAJ LAB OUTSIDE LAB (SEE SCANNED REPORT) PHOSPHORUS-OUTSID E LAB OUTSIDE LAB (SEE SCANNED REPORT) PTH-OUTSIDE LAB OUTS REAL LAB (SEE SCANNED REPORT) MICROALBUMIN RATIO-OUTSIDE LAB OUTSIDE LA B (SEE SCANNED REPORT) PROTEIN, UA-OUTSIDE LAB OUTSIDE LAB (SEE SCANNED REPORT) HGB 11.2(A) 14.0 - 18.0 G/DL OUTSIDE LAB (SEE SCANNED REPORT) 09/04/2022 Oscar León PA-C LABORATORY OUTSIDE LAB (SEE SCANNED REPORT) documented in this encounter Care Teams Wire Inspector Relationship Specialty Start Date End Date Artemio Herr PA-C 21 [facility] [place] [id number] PCP - General Physician Adjunct Trainer 07/06/18 documented as of this encounter
--- OUTSIDE RECORDS SUMMARY | 2023-10-26 05:05 | External Medical Summary | Summary of Care ---
Author Name Unknown Organization [facility] Address [address] [place] [address] Phone [phone] Care Team Providers Care Instructional Manager Name Role Phone Artemio Herr PA-C Primary Care Provider Encounter Details Date Type Department Care Team (Late st Contact Info) Description 10/06/[address] [facility] 21 [facility] [place] [phone] Artemio Herr PA-C 21 [facility] [place] [address] Allergies Active Allergy Reactions Criticality Noted [...] = 105 Diverticulosis of colon 07/03/201411/12 Overview: [place] 06/2014 Internal derangement of knee 09/29/2006 08/23/2008 [...] 12/28/2023 3:40 PM EDT Office Visit [facility] [place] [address] [place] [phone] Artemio Herr PA-C [address] [place] [address] Scheduled Procedures Name Priority Associated Diagnoses Date/Ti [...] Procedure Name Priority Date/Time Associated Diagnosis Comments XR CHEST 2 VIEWS Routine 09/30/2023 documented in this encounter Results * XR CHEST 2 VIEWS (09/30/2023) Anatomical Region Laterality Modality Chest Other 09/30/2023 Garrett Moreira MD RADIOLOGY (RAD GEN ERAL) documented in this encounter Care Teams Instructional Manager Relationship Specialty Start Date End Date Artemio Herr PA-C 21 [facility] [place] [phone] PCP - General Physician Radiology Transcriptionist 07/06/18 documented as of this encounter
--- OUTSIDE RECORDS SUMMARY | 2023-10-26 05:05 | External Medical Summary | Summary of Care ---
Author Name Unknown Organization [facility] Address [address] [facility] [place] [address] Phone [phone] Care Team Providers Care Vocational Counselor Name Role Phone Artemio Herr PA-C Primary Care Provider [phone] Encounter Details Date Type Department Care Team (Late st Contact Info) Description 09/30/2023 Result Scan Unspecified Department <No scans attached> Allergies Active Allergy Reactions Criticality Noted Date [...] (impaired fasting glucose) 12/03/2017 07/31/2021 Overview: FBG 18 = 105 Diverticulosis of colon 07/03/201411/12 Overview: [place] 06/2014 Internal derangement of knee 09/29/2006 08/23/2008 [...] Description 12/28/2023 3:40 PM EDT [facility] [place] [phone] Artemio Herr PA-C [address] [place] [phone] Scheduled Procedures Name Priority Associated Diagnoses Date/Ti [...] Additional history exists Lipid Panel 07/25/2027 07/24/2022, 0804/2020, 12/12/2019, Additional history exists DTaP,Tdap,and Td Vaccines [...] Procedure Name Priority Date/Time Associated Diagnosis Comments OUTSIDE LAB RESULTS 09/30/2023 documented in this encounter Results * OUTSIDE LAB RESULTS (09/30/2023) 09/30/2023 No Physician Data Unknown LABORATORY documented in this encounter Care Teams Vocational Counselor Relationship Specialty Start Date End Date Artemio Herr PA-C [address] [place] [phone] PCP - General Physician Traffic Sergeant 07/06/18 documented as of this encounter
[2023-10-26] MEDS: dexAMETHasone**PF** 10 MG/ML VIAL IV SCH (05:41)
[2023-10-26] MEDS: ACETAMINOPHEN 500 MG TAB PO SCH ×2 (05:41→14:13)
[2023-10-26] MEDS: FAMOTIDINE 20 MG TAB PO SCH (05:41)
[2023-10-26] MEDS: METOCLOPRAMIDE HCL 10 MG TABLET PO SCH (05:41)
[2023-10-26] MEDS: CeleBREX 200 MG CAP PO SCH (05:41)
[2023-10-26] MEDS: GABAPENTIN 600 MG DOSE PO SCH (05:41)
[2023-10-26] MEDS: LR 60ML/HR IV SCH (05:42)
[2023-10-26] MEDS: LR 15ML/HR IV SCH (06:02)
[2023-10-26] MEDS ORDERED: BUPIVACAINE 0.5 % 5 MG/1 ML PF 10ML VIAL ONE (06:12)
[2023-10-26] MEDS ORDERED: fentaNYL citrate PF 100 MCG/2 ML VIAL IV PRN (06:40)
[2023-10-26] MEDS ORDERED: KETOROLAC 30 MG/ML VIAL IV PRN (06:40)
[2023-10-26] MEDS ORDERED: ONDANSETRON INJ 2 MG/ML 2 ML VIAL IV PRN ×2 (06:40→11:26)
[2023-10-26] MEDS ORDERED: ATROPINE SULFATE 0.1 MG/ML 10ML SYR IV PRN (06:40)
[2023-10-26] MEDS ORDERED: fentaNYL citrate PF 100 MCG/2 ML VIAL ONE (06:41)
[2023-10-26] MEDS ORDERED: MIDAZOLAM HCL 1 MG/ML 2ML VIAL ONE (06:41)
[2023-10-26] MEDS ORDERED: PROPOFOL IV EMULSION 10 MG/ML 20 ML VIAL IV ONE (06:43)
[2023-10-26] MEDS ORDERED: LIDOCAINE 2% 2 ML VIAL/AMP(20MG/ML) INFIL ONE (06:43)
[2023-10-26] MEDS ORDERED: ROCURONIUM BROMIDE 10 MG/ML 5 ML VIAL IV ONE ×2 (06:43→09:02)
[2023-10-26] MEDS ORDERED: DEXAMETHASONE SOD INJ 4 MG/ML VIAL ONE (06:43)
[2023-10-26] MEDS ORDERED: ONDANSETRON INJ 2 MG/ML 2 ML VIAL ONE (06:43)
--- NOTE | 2023-10-26 06:44 | History & Physical Bridge Note ---
Date of Service October 26, 2023 History & Physical Bridge Note I have examined the patient, reviewed the History & Physical and in the interval since the performance of the History & Physical I have noted the following changes of clinical significance: no changes noted
[2023-10-26] MEDS: TRANEXAMIC ACID 1,000 MG **IV Pre-op IV SCH (06:49)
[2023-10-26] MEDS: ceFAZolin 2000MG 2,000 MG/15 ML SYR IV SCH ×2 (07:14→14:13)
[2023-10-26] MEDS ORDERED: ePHEDrine sulfate 50 MG/5 ML SYR ONE (07:59)
[2023-10-26] MEDS: EPINEPHrine HCL INJ 10 MG/10 ML VIAL ONE (08:13)
[2023-10-26] MEDS: TRANEXAMIC ACID 1,000 MG **IV Intra-op IV SCH (09:00)
[2023-10-26] MEDS ORDERED: SUGAMMADEX SODIUM 200 MG/2 ML VIAL IV ONE (09:15)
--- NOTE | 2023-10-26 09:52 | Operative Report ---
Post Operative Report Pre & Post Diagnosis Operation Date: 10/26/23 07:15 Pre-Op Diagnosis: Osteoarthritis of left shoulder region, biceps tenosynovitis Post-Op Diagnosis: Osteoarthritis of left shoulder region, biceps tenosynovitis tendinopathy biceps degeneration glenoid labrum. I identified the patient and participated in the time-out.: Yes Procedure Operation Date: 10/26/23 07:15 Actual Procedures p Left Total Shoulder Arthroplasty, Left Shoulder Bicep Tenodesis(Left) - Garrett Moreira MD Surgeon Garrett Moreira MD Leather Leveler Kulwant RENDON Estimated Blood Loss 50 Findings Consistent with Post-Op Diagnosis Specimens Humeral head Drains 2 Hemovac Anesthesia Type General Regional Complications none Disposition Disposition: Recovery Room Indications 63-year-old male presents with chronic left shoulder pain with osteoarthritis grade 4 [id number]. Prior ORIF clavicle on that shoulder. Symptoms of biceps tenosynovitis. Had successful stemless total shoulder replacement on his right shoulder. Description of Procedure Patient was taken to the operating room anesthetized under regional block and general anesthetic. Patient was placed in a 40 degree beachchair position with a foam headrest protective eyewear all extremities padded teds and SCDs were placed. A towel roll was placed on the medial border of the scapula of the left upper extremity. The arm was examined and range of motion demonstrated 120 degrees flexion 70 degrees abduction, [id number] crepitation. An anterior deltopectoral approach was performed. Longitudinal incision was made in deltopectoral interval. Skin incised sharply and subcutaneous flaps elevated. The deltopectoral interval was identified. The cephalic vein demonstrated normal sized vein. The cephalic vein was retracted laterally with the deltoid. The upper centimeter of the pectoralis was released for inferior exposure. Biceps tendon demonstrated chronic tenosynovitis surrounding the biceps tendon and intra-articular there was widening consistent with chronic tendinopathy.. The biceps was tenodesed to the pectoralis tendon using #2 FiberWire [id number]-[id number] sutures. Proximal biceps was resected. Rotator cuff findings demonstrated intact normal-appearing rotator cuff. The circumflex vessels were tied off with silk ties and divided laterally. The subscapularis muscle fibers were split at the level of circumflex vessels and released off the inferior capsule with a Kitner elevator and then a blunt Hohmann retractor was placed protect the axillary nerve. The rotator interval was released down to the level of the glenoid. The subscapularis tendon was taken down with a transtendinous incision leaving a cuff of tissue for repair on the lesser tuberosity. The humeral head findings demonstrated eburnated bone grade 4 osteoarthritis with some bone remodeling and flattening due to wear. The inferior osteophytes were resected using an artist chisel and rongeur. The inferior capsule was released off the bone subperiosteally using a Rodriguez elevator. A #1 Vicryl traction suture was placed into the free edge of the subscapularis tendon. A Fukuda retractor was placed into the joint. Capsule was released with Verde scissors down to the glenoid and off of the anterior glenoid to the rotator interval which was released to meet the capsular release creating a 360 degree release of subscapularis tendon. An anterior Bankart retractor was placed. The glenoid and labral findings demonstrated fairly wide labrum with some degenerative changes circumferentially. The glenoid was eburnated bone no articular cartilage remaining with a type A wear pattern concentrically. The labrum was resected and the intra-articular biceps resected. An anterior-inferior and posterior inferior capsule release was performed electrocautery on bone and a Rodriguez elevator. The axillary nerve was protected inferiorly with the blunt Hohmann. Attention was taken back to the humeral head. Humeral head was exposed with extension and external rotation. The oscillating saw was used to make an anatomic neck cut removing the articular surface. All the circumfe rential remaining osteophytes were trimmed with a rongeur. The humerus was sized for a 3 nucleus and a 52 x 21 humeral head. The bone was assessed with a thumb press test and there was solid cancellous bone. The guide for the nucleus was placed centrally and then the guidepin was placed. The surface reamer was used followed by the central drill for the nucleus. The trial nucleus was inserted and the cut protector was placed. The humerus was retracted posterior to the glenoid . A Tornier retractor ,Hohmann retractors as well as an anterior Bankart retractor were placed. The glenoid was fully exposed. The Tornier Cortiloc glenoid was used. The large 40 radius Cortiloc pegged component was chosen. The central drill hole was made followed by the reamer for the glenoid followed by widening the central hole for the central post. The guide for the peripheral drill holes was placed and the drill holes were made. The trial reduction performed with stable fixation. The trial removed and the glenoid copiously irrigated with pulsed saline solution. The drill holes were packed with epinephrine-soaked tampons. The Palacos G cement was vacuum mixed. The large 40 radius Cortiloc pegged polyethylene glenoid component was then cemented in position after drying the glenoid after removal of the tampons. Fixation was excellent. All excess cement was cleared. When the cement cured we moved onto removing the cut protector doing a trial reduction with a 52 x 21 millimeter humeral head trial. Stability was assessed and was stable. Soft tissue tension on the subscapularis tendon was satisfactory. The trial components of the humeral head were removed and the 3 drill holes were made in the harder bone in the biceps groove area and transosseous #5 FiberWire sutures were placed. Then the humeral cut surface was reexposed with retractors and after irrigation the size 3 nucleus was impacted leaving it slightly proud until the simplicity 52 x 21 mm soft tissue balancing humeral head was placed into the nucleus and then both were impacted into the humerus with a tight press-fit. The humerus was reduced to the glenoid. The stability was verified. The subscapularis tendon was repaired in 2 obbgzs-ru-bjcgb #2 FiberWire sutures. Lateral row fixation was performed with interrupted mprwoy-st-prfbr #2 FiberWire sutures and rotator interval was closed with #2 FiberWire sutures. Range of motion demonstrated 150 degrees forward flexion 90 degrees abduction and 80 degrees internal and external rotation without tension on repair. The pectoralis was repaired with kptcbm-vz-gkjiu #2 FiberWire sutures placing sutures back through the biceps tendon to reinforce the tenodesis. 2 Hemovac drains were placed. The deltopectoral interval was repaired with hdrchp-xi-qhtej #1 Vicryl sutures. The subcutaneous tissue was repaired with 2- 0 Vicryl sutures and the skin was closed with phoenix. Sterile dressings were applied and a sling immobilizer. The patient tolerated the procedure well. Kulwant RENDON acted as human resources assistant throughout the procedure. He functioned as human resources assistant assisting in all aspects of the procedure including patient positioning prepping draping, arm positioning, soft tissue retraction,, instrument management, subcutaneous and skin closure and postop care the patient as well. I attest to the content of the Intraoperative Record and any orders documented therein. Any exceptions are noted below.
[2023-10-26] MEDS ORDERED: KETOROLAC TROMETHAMINE 15 MG/ML VIAL IV PRN (11:26)
[2023-10-26] MEDS ORDERED: MAGNESIUM HYDROXIDE SUSP 30 ML UDC PO PRN (11:26)
[2023-10-26] MEDS ORDERED: oxyCODONE HCL IR 5 MG TAB (IMMEDIATE RELEASE) PO PRN (11:26)
[2023-10-26] MEDS ORDERED: METOCLOPRAMIDE HCL INJ 5 MG/ML 2 ML VIAL IV PRN (11:26)
[2023-10-26] MEDS ORDERED: NALOXONE HCL 0.4 MG/1 ML VIAL/CARP IV PRN (11:26)
[2023-10-26] MEDS ORDERED: bisacodyL 10 MG SUPP PR PRN (11:26)
[2023-10-26] MEDS ORDERED: diphenhydrAMINE Capsule 25 MG CAP PO PRN (11:26)
[2023-10-26] MEDS ORDERED: HYDROmorphone INJ 0.5 MG/0.5 ML SYR IV PRN (11:26)
[2023-10-26] MEDS: SODIUM CHLORIDE 0.9% 1,000 ML IV SCH (12:26)
--- NOTE | 2023-10-26 12:34 | Anesthesiology Progress Note ---
Date of Service October 26, 2023 Anesthesia Post Procedure Vital Signs Vital Signs: Temp Pulse Pulse Resp BP Pulse Ox O2 Del Method 10/26/23 12:21 36.6 C 61 16 122/62 95 Room Air 10/26/23 11:55 36.6 C 68 16 115/68 95 Room Air 10/26/23 11:26 36.5 C 68 16 120/66 95 Room Air 10/26/23 11:15 64 16 103/63 94 Room Air 10/26/23 11:00 62 18 107/63 94 Room Air 10/26/23 10:45 62 16 110/63 94 Room Air 10/26/23 10:30 36.4 C L 68 20 118/74 95 Room Air 10/26/23 10:20 71 18 123/73 98 Room Air 10/26/23 10:10 75 18 115/69 100 Oxymask 10/26/23 10:00 36.2 C L 70 16 140/79 100 Oxymask 10/26/23 05:31 36.8 C 59 L 20 147/87 H 98 Room Air O2 Flow Rate 10/26/23 12:21 10/26/23 11:55 10/26/23 11:26 10/26/23 11:15 10/26/23 11:00 10/26/23 10:45 10/26/23 10:30 10/26/23 10:20 10/26/23 10:10 3 10/26/23 10:00 6 10/26/23 05:31 Pain Intensity Left Shoulder: Pain Intensity: 5 Transfer of Care Handoff Completed per policy Notes Mental Status: alert / awake / arousable Patient Amnestic to Procedure: Yes Nausea / Vomiting: adequately controlled Pain: adequately controlled Airway Patency, RR, SpO2: stable & adequate BP & HR: stable & adequate Hydration State: stable & adequate Anesthetic Complications: no major complications apparent
--- NOTE | 2023-10-26 12:53 | XRay Report ---
XR shoulder LT min 2V routine CLINICAL HISTORY: Post shoulder surgery COMPARISON: None FINDINGS: Postoperative findings consistent with left shoulder arthroplasty are noted. Hardware is i ntact. There is no periprosthetic fracture or unexpected radiopaque foreign body. Skin phoenix and guillermo rgical drains are noted. Left clavicular internal fixation is incidentally noted. IMPRESSION: Expected findings following left shoulder arthroplasty. ACT 112: Negative or not required by law. Electronically signed by: Matheus Maldonado M.D. 10/26/2023 12:52 PM
--- NOTE | 2023-10-26 16:14 | Consultation ---
Date of Consultation October 26, 2023 Assessment & Plan (1) Osteoarthritis of left shoulder region: S/P Left shoulder Arthroplasty POD # 0 Pain is controlled Monitor for post OP anemia Bowel regimen to prevent constipation Activity & DVT Px as per Primary team Continue gentle IV fluids Hypertension Continue lisinopril with holding parameters Monitor BP Dyslipidemia Intolerant to statins Currently not on any medications Asthma No signs of acute exacerbation Uses albuterol as needed Gout Currently not on any preventive medications No acute issues Prediabetes HbA1c 5.9 on outpatient records CKD III Baseline creatinine 1.3-1.5 Monitor renal function Avoid nephrotoxic agents as able DVT Px: Per primary team History of Present Illness Requesting Physician: Reason for Consultation: Postop medical management Attending Physician: Garrett Moreira MD History of Present Illness Patient is a 63-year-old male with history of hypertension, hyperlipidemia, gout, asthma, arthritis and other medical problems was consulted for postop medical management. Patient underwent left total shoulder arthroplasty by Dr. Moreira on 10/26/2023. Patient is doing well postoperatively. Left shoulder pain is controlled with medications. He does have some numbness of his fingers of left upper extremity but otherwise no complaints currently. Denies any chest pain, dyspnea, nausea, vomiting, abdominal pain. Allergies Allergy/AdvReac Type Severity Reaction Status Date / Time oxycodone [From Percocet] AdvReac Unknown Nausea, Verified 10/26/23 05:38 headache rosuvastatin [From Crestor] AdvReac Unknown Myalgia, Verified 10/26/23 05:38 nausea Home Medications Medication Instructions Recorded Confirmed Type acetaminophen 500 mg tablet 1,000 mg PO UD PRN Pain 09/14/23 10/26/23 History (Tylenol Extra Strength) lisinopril 20 mg tablet 20 mg PO QAM 09/14/23 10/26/23 History Patient History Medical History History of kidney injury Hx infection infancy- limited details, no residual issues Hyperlipidemia Diet controlled Prediabetes Diet controlled History of colon polyps Osteoarthritis HTN (hypertension) Arthritis History of asthma History of gout Surgical History Status post total shoulder arthroplasty Right TSA (09/03/2022): Grade view 1, MAC4, ETT 7.5 + regional at [facility] History of appendectomy Hx of tooth extraction Hx of colonoscopy Hx of arthroscopic knee surgery Left History of open reduction and internal fixation (ORIF) procedure R/t Left clavicle fracture Family History Other Coronary heart disease Diabetes No family history of adverse response to anesthesia Social History Smoking Status: Former smoker Smoking End Date: Quit 17 years ago; Second Hand Exposure: No; Do You Dip or Chew Tobacco: No; Hx Substance Use: No Preferred Language: Kittitian Communication Ability: Effective Nurse Paralegal Required: No Beliefs That Will Affect Care: None Current Living Situation: Spouse Feels Safe at Home: Yes Assistive Devices: None Review of Systems Review of Systems: All systems reviewed & are unremarkable except as noted in Subjective Physical Exam Physical Exam: Physical Exam: Vitals signs as noted above General Appearance:Moderately built and nourished, no apparent distress Head: normocephalic, Atraumatic Eyes: normal inspection, EOMI Neck: supple, Trachea midline Respiratory/Chest: Normal breath sounds, CTA, No accessory muscle use Cardiovascular: S1, S2, No murmur Abdomen/GI:Soft, Non tender, Bowel sounds present Extremities/Musculoskeletal:normal inspection, no edema, left shoulder in sling, surgical site in dressing,+ drain Neurologic/Psych:AAOX3, grossly no focal neurological deficits Skin: normal color, warm Results & Data Vital Signs (Past 12 Hours) Vital Signs Temp Pulse Pulse Resp BP Pulse Ox O2 Del Method 10/26/23 14:32 36.6 C 70 16 120/65 96 Room Air 10/26/23 13:21 62 16 118/70 96 Room Air 10/26/23 12:21 36.6 C 61 16 122/62 95 Room Air 10/26/23 11:55 36.6 C 68 16 115/68 95 Room Air 10/26/23 11:26 36.5 C 68 16 120/66 95 Room Air 10/26/23 11:15 64 16 103/63 94 Room Air 10/26/23 11:00 62 18 107/63 94 Room Air 10/26/23 10:45 62 16 110/63 94 Room Air 10/26/23 10:30 36.4 C L 68 20 118/74 95 Room Air 10/26/23 10:20 71 18 123/73 98 Room Air 10/26/23 10:10 75 18 115/69 100 Oxymask 10/26/23 10:00 36.2 C L 70 16 140/79 100 Oxymask 10/26/23 05:31 36.8 C 59 L 20 147/87 H 98 Room Air O2 Flow Rate 10/26/23 14:32 10/26/23 13:21 10/26/23 12:21 10/26/23 11:55 10/26/23 11:26 10/26/23 11:15 10/26/23 11:00 10/26/23 10:45 10/26/23 10:30 10/26/23 10:20 10/26/23 10:10 3 10/26/23 10:00 6 10/26/23 05:31 (1) Osteoarthritis of left shoulder region Osteoarthritis type: primary Qualified Code(s): M19.012 - Primary osteoarthritis, left shoulder
[2023-10-26] MEDS: TRANEXAMIC ACID / 0.7% NACL 1,000 MG/100 ML BAG IV SCH (17:26)
[2023-10-26] MEDS: ASPIRIN 325 MG ECTAB PO SCH (20:05)
[2023-10-26] MEDS: DOCUSATE SODIUM 100 MG CAP PO SCH (20:05)
[2023-10-26] MEDS: SENNA 8.6 MG TAB PO SCH (20:05)
[2023-10-27] MEDS: ALUMINUM/MAGNESIUM SUSP 30 ML UDC PO PRN (03:28)
[2023-10-27 07:59] LABS: Basophils # (auto) 0.02 K/uL (0.00-0.20); Basophils % (auto) 0.2 %; Hematocrit (blood only) 30.1 % (42.0-52.0); Hemoglobin 9.9 g/dl (14.0-18.0); Immature Granulocytes # (auto) 0.05 K/uL (0.01-0.20); Immature Granulocytes % (auto) 0.4 %; Lymphocytes # (auto) 1.16 K/uL (1.20-3.40); Lymphocytes % (auto) 10.2 %; Mean Corpuscular Hemoglobin 29.6 pg (25.0-34.0); Mean Corpuscular Hgb Conc 32.9 g/dL (32.0-36.0); Mean Corpuscular Volume 90.1 fL (80.0-100.0); Mean Platelet Volume 9.9 fL (9.4-12.4); Monocytes # (auto) 0.83 K/uL (0.11-0.59); Monocytes % (auto) 7.3 %; Neutrophils % (auto) 81.9 %; Platelet Count 239 K/uL (130-400); RDW Coefficient of Variation 12.6 % (11.5-14.5); RDW Standard Deviation 41.9 fL (36.4-46.3); Red Blood Count 3.34 M/uL (4.70-6.10); White Blood Count 11.36 K/ul (4.8-10.8)
--- NOTE | 2023-10-27 08:12 | Orthopedic Progress Note ---
Date of Service October 27, 2023 Assessment & Plan (1) H/O total shoulder replacement: Plan: Postop day 1 total shoulder replacement left shoulder. Patient doing well. Drainage only 50 cc so can be pulled prior to discharge. Discharge home after seen by OT PT. Arrange outpatient physical therapy. Follow-up for staple removal 2 weeks. Admission and Anticipated Discharge Date Admission Date: October 26, 2023 Subjective No complaints no pain good pain relief Review of Systems Review of Systems: no chest pain shortness of breath Physical Exam Physical Exam: Dressing dry and intact. Distal circulation sensory motor exam all intact. Sling intact. Results & Data Vital Signs (Past 12 Hours) Vital Signs Temp Pulse Resp BP Pulse Ox O2 Del Method 10/27/23 07:59 36.4 C L 59 L 16 141/78 H 98 Room Air 10/27/23 03:23 36.4 C L 67 18 155/85 H 98 Room Air 10/26/23 23:12 36.7 C 66 18 122/67 97 Room Air Diagnostic Findings Left stemless total shoulder replacement good position (1) H/O total shoulder replacement Laterality: left Qualified Code(s): Z96.612 - Presence of left artificial shoulder joint
[2023-10-27] MEDS: MULTIVITAMIN TAB PO SCH (08:16)
[2023-10-27] MEDS: lisinopril 20 MG TAB PO SCH (08:16)
[2023-10-27 08:19] LABS: Calcium 8.4 mg/dl (8.6-10.3); Creatinine Clr Calc Pharmacy 64.7 ml/min; Est GFR (African American) 70.4 ml/min; Est GFR (Non-African American) 60.7 ml/min; Magnesium 1.8 mg/dl (1.7-2.4); Potassium 4.5 mmol/L (3.5-5.1)
--- NOTE | 2023-10-27 12:39 | Hospitalist Progress Note ---
Date of Service October 27, 2023 Assessment & Plan (1) Osteoarthritis of left shoulder region: Plan: S/P Left shoulder Arthroplasty POD #1 Postoperative acute blood loss anemia Hb dropped partly dilutional due to IV fluids Pain is controlled Monitor for post OP anemia Bowel regimen to prevent constipation Activity & DVT Px as per Primary team Continue gentle IV fluids Hemoglobin 9.9 today No indication for PRBC transfusion Advised to follow-up with PCP on discharge Leukocytosis Likely reactive postop, steroids No obvious signs of infection Monitor Hypertension Continue lisinopril Monitor BP Dyslipidemia Intolerant to statins Currently not on any medications Asthma No signs of acute exacerbation Uses albuterol as needed Gout Currently not on any preventive medications No acute issues Prediabetes HbA1c 5.9 on outpatient records CKD III Baseline creatinine 1.3-1.5 Monitor renal function Avoid nephrotoxic agents as able DVT Px: Per primary team Admission and Anticipated Discharge Date Admission Date: October 26, 2023 Subjective Patient is seen and examined at bedside Left shoulder pain at surgical site is controlled Offers no new complaints today Denies any chest pain, dyspnea, nausea, vomiting, abdominal pain Plan to be discharged home today Family at bedside Review of Systems Review of Systems: All systems reviewed & are unremarkable except as noted in Subjective Physical Exam Physical Exam: Physical Exam: Vitals signs as noted above General Appearance:Moderately built and nourished, no apparent distress Head: normocephalic, Atraumatic Eyes: normal inspection, EOMI Neck: supple, Trachea midline Respiratory/Chest: Normal breath sounds, CTA, No accessory muscle use Cardiovascular: S1, S2, No murmur Abdomen/GI:Soft, Non tender, Bowel sounds present Extremities/Musculoskeletal:normal inspection, no edema, left shoulder in sling, surgical site in dressing,+ drain Neurologic/Psych:AAOX3, grossly no focal neurological deficits Skin: normal color, warm Results & Data Results & Data Vital Signs (Past 12 Hours) Vital Signs Temp Pulse Resp BP Pulse Ox O2 Del Method 10/27/23 07:59 36.4 C L 59 L 16 141/78 H 98 Room Air 10/27/23 03:23 36.4 C L 67 18 155/85 H 98 Room Air Laboratory Results Short CBC 10/27/23 Range/Units 07:14 WBC 11.36 H (4.8-10.8) K/ul Hgb 9.9 L (14.0-18.0) g/dl Hct 30.1 L (42.0-52.0) % Plt Count 239 (130-400) K/uL BMP 10/27/23 07:14 Sodium 137 Potassium 4.5 Chloride 106 Carbon Dioxide 25 BUN 34 H Creatinine 1.26 Glucose 102 H Calcium 8.4 L (1) Osteoarthritis of left shoulder region Osteoarthritis type: primary Qualified Code(s): M19.012 - Primary osteoarthritis, left shoulder
--- NOTE | 2023-10-27 15:33 | Discharge Summary ---
Date of Service October 27, 2023 Admission HPI Per Admitting Provider 63-year-old male with chronic osteoarthritis in his left shoulder and successful right total shoulder replacement now wants proceed with left total shoulder replacement. Patient also has biceps tendinopathy tenosynovitis clinically. Patient has prior open reduction total fixation of clavicle on that shoulder with plate on the clavicle of the left shoulder. Patient denies headaches, sweats, fevers, chills, double vision, blurred vision, cough, sore throat, dysphagia, chest pain, sob, wheezing, n/v/d/c, numbness, tingling, fatigue, urinary symptoms, mood disorders. ROS positive for hiatal hernia and a chipped tooth. Principal Diagnosis Left shoulder osteoarthritis Discharge Exam Constitutional WD/WN, vitals as above no acute distress Musculoskeletal Shoulder: + surgical incision (Dressing C/D/I) and + surgical drain present (50 cc); no deformity, no skin erythema and no ecchymosis Skin no rashes, warm and dry Neurologic normal touch/pain/proprioception Psychiatric A+Ox3, euthymic affect Speech: normal rate/rhythm/volume of speech Discharge Data Allergies Allergy/AdvReac Type Severity Reaction Status Date / Time oxycodone [From Percocet] AdvReac Unknown Nausea, Verified 10/26/23 05:38 headache rosuvastatin [From Crestor] AdvReac Unknown Myalgia, Verified 10/26/23 05:38 nausea Consultations 10/21/23 11:26 Consult Hospitalist Routine Procedures Performed Operation Date: 10/26/23 07:15 Actual Procedures p Left Total Shoulder Arthroplasty, Left Shoulder Bicep Tenodesis(Left) - Garrett Moreira MD Ordered Studies 10/26/23 05:00 [facility] Hospital Course (1) H/O total shoulder replacement: Postop day 1 total shoulder replacement left shoulder. Patient doing well. Drainage only 50 cc so can be pulled prior to discharge. Discharge home after seen by OT PT. Arrange outpatient physical therapy. Follow-up for staple removal 2 weeks. Total Time Total Time Spent Total Time Spent (In Minutes): 20 Discharge Plan Discharge Items Patient Disposition: Home - Self-Care Reason For Visit: Left Shoulder Osteoarthritis, Left Shoulder Bicep Discharge Diagnosis: Left shoulder osteoarthritis Activity: Per Instructions section Non-emergency contact: Surgeon Call non-emergency contact if: your pain is not controlled, your pain is worsening and your temperature is above 101 Follow-up/Referrals: Artemio Herr PA-C [Primary Care Provider] - Diet: Regular Addtl Attending Provider Instructions: ACTIVITY RECOMMENDATIONS: SELF CARE INSTRUCTIONS AFTER TOTAL SHOULDER ARTHROPLASTY A. You may do daily exercises as taught in physical therapy while in hospital. No lifting with the operative arm. Please schedule your outpatient physical therapy appointment to begin within 2-3 days after leaving the hospital. Specific restrictions will be written on your physical therapy prescription that is provided to you. B. You are to wear your sling/immobilizer at all times EXCEPT when performing your daily exercises, participating in physical therapy and for hygiene purposes. C. You may perform dry, daily dressing changes. Please keep your incision covered. You may shower 48 hours after surgery. Do not apply soap or any ointment/lotions directly over incision. Do not soak incision in bath tub/swimming pool. D. You may use ice as needed to operative shoulder. SPECIAL CARE INSTRUCTIONS: MEDICATION INSTRUCTIONS: *It is recommended you take Aspirin 325mg daily for four weeks post-op. VERY IMPORTANT TO READ AND REVIEW A. There are a few signs you need to watch for after you are home. Call [facility] at [phone] if you experience any of the followin. Increased severe shoulder pain. Some pain is expected especially when you exercise. 2. Increased swelling in you shoulder or arm; pain or swelling in either upper extremity. 3. Any fluid drainage from the incision. 4. Shortness of breath or chest pain. B. Please call [facility] at [phone] if you have any questions or concerns about your operation or recovery. C. Call your physician if: 1. Temperature is greater than 101 degrees (F). 2. Pain is not relieved by prescribed pain medications. 3. Increase drainage or redness from incision. 4. Unanswered questions or concerns. FOLLOW UP VISIT: Please call [facility] at [phone] to schedule a follow up appointment with Dr. Moreira or his PA in 12-14 days from your surgery date. Pending Studies at Discharge: No Stand-Alone Forms: [facility], Pain - Opioid Pain Management, Smoking Cessation Medications and DC Order Prescriptions: New acetaminophen [Tylenol Extra Strength] 500 mg Tablet 1,000 mg PO Q8 Qty: 90 0RF aspirin [Ecotrin] 325 mg Tablet,Delayed Release (Dr/Ec) 325 mg PO DAILY Qty: 30 0RF oxycodone 5 mg Tablet 5 mg PO Q4H PRN (Reason: pain) Qty: 20 0RF Rx Instructions: Initial therapy. Garrett Moreira MD supervising. Surgery date 10.26.23. Continued lisinopril 20 mg Tablet 20 mg PO QAM Discontinued acetaminophen [Tylenol Extra Strength] 500 mg tablet 1,000 mg PO UD PRN (Reason: Pain) Patient Comments: rare Discharge Orders: Discharge Order (Routine); Ordered 10/27/23 Ordered By: Garrett Dillon/Other Patient Handouts: Shoulder Arthroscopy Dc Admission Data Admit Date/Time: 10/26/23 10:24 Attending Provider: Garrett Moreira Admit Provider: Garrett Moreira Primary Care Provider: Artemio Herr Other Providers: Fou[place],[facility]; Donna Wright Other Interventions: Discharge Summary Assessment (RN) Last Done: 10/27/23 10:17
== END 2023-10-27 12:27 | disposition home or self-care (01) ==
LOC: 3W 05:01 → ASU 05:01